=== PATIENT | female | born 1930 | race Caucasian/White ===

== ENCOUNTER 2016-11-21 20:13 | Emergency (ER) | payer OTHER ==
[~2016-11-21] VITALS: Ht 157.5 cm; Wt 46.5 kg
[~2016-11-21 20:13] MED LIST: ADVIN25/60 INH; ASPI81TA57 PO; ATOR-14 PO; AZITTAB PO; BISA5TAB4 PO; CALCTAB23 PO; CHOL100010 PO; DOCU50CA2 PO; FURO-85 PO; IPRA17AE2 INH; IPRASOL34 INH; ISOS30TA13 PO; LCTX PO; LUTE1CAP6 PO; MECL1TAB42 PO; NITR0.4S UT; OXGN; OXYC-609 PO; POLY335025 PO; POTA20TA16 PO; ZINC25CA PO
[2016-11-21 20:18] VITALS: BP 125/67; PULSE 68; TEMP 36.6; O2SAT 95; Ht 157.5 cm; Wt 46.5 kg
[2016-11-21] MEDS ORDERED: VALA500T60 PO (20:49)
[2016-11-21] MEDS ORDERED: SPRIN/30 INH (21:03)
[2016-11-21] MEDS ORDERED: PRED-301 PO (21:03)
[2016-11-21] MEDS ORDERED: MAGIC1 PO (21:03)
--- NOTE | 2016-11-21 21:43 | EMERGENCY ROOM VISIT NOTE ---
History Report prepared by Jozef: Harmeet Brunner Under the Supervision of: Dr. Gene Young M.D. First contact with patient: 20:38 Chief Complaint: OTHER COMPLAINT Stated Complaint: ULCERS IN MOUTH THAT WONT GO AWAY History of Present Illness The patient is a 85 year old female who presents to the Emergency Room with complaints of worsening mouth ulcers beginning 3 months ago. She states that she has been seen by her PCP for her symptoms. She has no history of ulcers. The patient has dentures in place, and notes that the ulcers are spreading to the roof of her mouth. Nothing has improved her symptoms. She has no other complaints and denies any fevers. Source of History: patient Onset: 3 months ago Position: other (mouth) Quality: other (ulcers) Timing: worsening Modifying Factors (Relieving): other (none) Associated Symptoms: No fevers Review of Systems See HPI for pertinent positives & negatives. A total of 10 systems reviewed and were otherwise negative. Past Medical & Surgical Medical Problems: (1) Benign hypertension (2) Chest pain (3) CHF (congestive heart failure) (4) Chronic obstructive lung disease (5) Coronary artery disease (6) Dizziness (7) Dyslipidemia (8) Gastroesophageal reflux disease (9) Hip pain (10) Hypoxia (11) Hypoxia (12) Inability to ambulate due to hip (13) Inability to ambulate due to hip (14) Intractable pain (15) KNEE JOINT REPLACEMENT STATUS (16) MACULAR DEGENERATION NOS (17) [place] (myocardial infarction) (18) OSTEOPOROSIS NEC (19) Pain in wrist (20) Pneumonia (21) Pseudogout (22) Pseudogout (23) Pseudogout (24) Refractory migraine without aura (25) Sciatica (26) SOB (shortness of breath) (27) Symptomatic bradycardia (28) Symptomatic bradycardia (29) Symptomatic bradycardia (30) Vertigo (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 Family History Cancer Diabetes mellitus Heart disease Hypertension Social History Smoking Status: Unknown if Ever Smoked Alcohol Use: none Drug Use: none Marital Status: Housing Status: lives with family Occupation Status: retired Current/Historical Medications Scheduled Aspirin (Aspirin Ec Lo-Dose), 81 MG PO DAILY Atorvastatin (Lipitor), 10 MG PO QPM Bisacodyl (Fleet Laxative), 5 MG PO QPM Calcium Carbonate-Vitamin D (Calcium 600-D), 1 TABLET PO BID Cholecalciferol (Vitamin D), 1,000 INTER.UNIT PO BID Diphenhy/Alum/Mag/Sucralfa (Magic Swizzle - Diphenhy/Alum/Mag/Sucralfa), 30 ML PO QID Docusate Sodium (Colace), 100 MG PO HS Fluticasone Prop/Salmeterol (Advair Diskus 250/50 60 Dose), 1 PUFF INH BID Furosemide (Lasix), 20 MG PO Q2D Ipratropium [place] Hfa (Atrovent Hfa), 2 PUFFS INH BID Ipratropium-Albuterol (Duoneb), 1 TREATMENT INH BID Isosorbide Mononitrate (Imdur), 30 MG PO QAM Lactobacillus Acidophilus (Floranex), 1 TAB PO DAILY Lutein (Lutein), 40 MG PO DAILY Omeprazole (Prilosec), 40 MG PO QPM Oxygen (Oxygen), 3 LITER NA HS Polyethylene Glycol 3350 (Miralax), 1 DOSE PO DAILY UD Potassium Ext Rel (Klor-Con), 20 MEQ PO DAILY Prednisone (Prednisone), 5 MG PO DAILY Tiotropium [place] (Spiriva Handihaler), 1 CAP INH DAILY Valacyclovir (Valtrex), 500 MG PO BID Zinc Acetate (Oral) (Galzin), 50 MG PO TID Scheduled PRN Diazepam (Valium), 5 MG PO BID PRN for Anxiety or Tremor Furosemide (Lasix), 20 MG PO QAM PRN for SWELLING OR WEIGHT GAIN Meclizine Hcl (Meclizine Hcl), 25 MG PO TID PRN for Dizziness Nitroglycerin (Nitrostat), 0.4 MG UT UD PRN for Chest Pain Oxycodone HCl (Oxycodone HCl), 5 MG PO Q6H PRN for Headache Oxygen (Oxygen), 2 LITERS NA daytime PRN for Shortness of Breath Allergies Coded Allergies: Penicillins (Verified Allergy, Intermediate, AMOXICILLIN-HIVES, 11/21/16) Polymyxin B (Verified Allergy, Unknown, POLYTRIM, 11/21/16) Trimethoprim (Verified Allergy, Unknown, POLYTRIM, 11/21/16) Physical Exam Vital Signs Date Time Temp Pulse Resp B/P Pulse Ox O2 Delivery O2 Flow Rate FiO2 11/21/16 20:18 36.6 68 18 125/67 95 Room Air Physical Exam General: Sitting at the bedside in wheel chair. No acute distress. HEENT: Two mucosal ulcers noted. One to the inner aspect of the lower lip, another to the upper central gumline underneath her dentures. No gingivitis. No pharyngitis. Mucous membrane are moist. Neuro: Awake, alert and oriented x3. No focal motor deficits. Medical Decision & Procedures Medications Administered Medications (Trade) Dose Ordered Sig/Omkar Route Start Time Stop Time Status Last Admin Dose Admin Valacyclovir HCl (Valtrex Tab) 500 mg NOW STAT PO 11/21/16 20:44 11/21/16 20:46 DC 11/21/16 20:49 500 MG ED Course 2037: The patient was evaluated in room B2. A complete history and physical exam was performed. 2043: Ordered Valtrex Tab 500 mg PO. 2049: Reevaluated the patient. Discussed results and discharge instructions: she verbalized understanding and agreement. The patient is ready for discharge. Medical Decision The patient is a 85 year old female who presents to the ED with complaints of worsening mouth ulcers. Differential diagnoses considered include gingivitis, pharyngitis, stomatitis, mouth ulcers, and cold sores. The patient has 2 superficial ulcers in the mouth. There is no evidence for posterior pharyngeal ulcers. There is no gingivitis. She is not toxic or febrile. The patient is going to be placed on Valtrex, a dose was given here. She can follow with her doctors office. She can return for worsening symptoms. Impression Primary Impression: Mouth ulcers Scribe Attestation The scribe's documentation has been prepared under my direction and personally reviewed by me in its entirety. I confirm that the note above accurately reflects all work, treatment, procedures, and medical decision making performed by me. Departure Information Dispostion Home / Self-Care Prescriptions Valacyclovir (Valtrex) 500 Mg Tab 500 MG PO BID for 10 Days, #20 TAB Prov: Gene Young M.D. 11/21/16 Referrals Elder Nickerson, D.OClarissa (PCP) Forms HOME CARE DOCUMENTATION FORM, IMPORTANT VISIT INFORMATION, WORK / SCHOOL INSTRUCTIONS Patient Instructions A Signature Page, My [employer] Additional Instructions use valtrex 2x per day for 10 days see your doctor this week for a recheck otc creams to help the pain return if worsening
[2017-02-08] MEDS ORDERED: LVQ750 PO (12:20)
== END 2016-11-21 20:57 | disposition home or self-care (01) ==
LOC: C.EDB 20:15
DX: K12.30 Oral mucositis (ulcerative), unspecified (principal); I10 Essential (primary) hypertension; I25.10 Atherosclerotic heart disease of native coronary artery without angina pectoris; E78.5 Hyperlipidemia, unspecified; K21.9 Gastro-esophageal reflux disease without esophagitis; I50.9 Heart failure, unspecified; J44.9 Chronic obstructive pulmonary disease, unspecified; M81.0 Age-related osteoporosis without current pathological fracture; I25.2 Old myocardial infarction; Z96.659 Presence of unspecified artificial knee joint; Z79.82 Long term (current) use of aspirin; Z79.899 Other long term (current) drug therapy; Z88.0 Allergy status to penicillin; Z88.8 Allergy status to other drugs, medicaments and biological substances; Z80.9 Family history of malignant neoplasm, unspecified; Z83.3 Family history of diabetes mellitus; Z82.49 Family history of ischemic heart disease and other diseases of the circulatory system

== ENCOUNTER 2017-02-04 13:14 | Inpatient (IN) | payer OTHER ==
[~2017-02-04] VITALS: Ht 157.5 cm; Wt 49.3 kg
[~2017-02-04 13:14] MED LIST changes: -AZITTAB PO; +MAGIC1 PO; +PRED-301 PO; +SPRIN/30 INH
[2017-02-04 16:00] VITALS: BP 147/57; PULSE 58; TEMP 36.3; O2SAT 95
[2017-02-04] MEDS ORDERED: ONDANSETRON INJ 2 MG/ML 2 ML VIAL IV PRN (16:30)
[2017-02-04] MEDS ORDERED: ACETAMINOPHEN 325 MG TAB PO PRN (16:30)
[2017-02-04] MEDS ORDERED: BISA5TAB4 PO (17:43)
[2017-02-04] MEDS ORDERED: SENNTAB23 PO (17:43)
[2017-02-04] MEDS ORDERED: POTA-74 PO (17:43)
[2017-02-04] MEDS ORDERED: AZIT250T PO (17:43)
[2017-02-04] MEDS ORDERED: MOME6000 NAE (17:43)
[2017-02-04] MEDS ORDERED: PRED10TA PO (17:43)
[2017-02-04] MEDS ORDERED: NITROGLYCERIN 0.4 MG SL PER TAB CHARGE UT PRN (17:45)
[2017-02-04] MEDS ORDERED: OXYCODONE HCL IR 5 MG TAB (IMMEDIATE RELEASE) PO PRN (17:45)
[2017-02-04] MEDS ORDERED: BISACODYL 5 MG TABEC PO PRN (17:45)
[2017-02-04] MEDS ORDERED: MECLIZINE HCL 12.5 MG TAB PO PRN (17:45)
[2017-02-04] MEDS ORDERED: LEVOFLOXACIN / D5W 750 MG in PREMIXED IN D5W 150 ML IV SCH (18:15)
[2017-02-04 18:37] LABS: BASO % 0.5 %; BASO ABS # 0.02 K/uL (0-0.2); COMPLETE YES; EOS % 0.5 %; HEMATOCRIT 37.7 % (37-47); IG% 0.2 %; LYMPH % 26.4 %; LYMPH ABS # 1.09 K/uL (1.2-3.4); MEAN CELL VOLUME 78.1 fL (80-100); MEAN CORPUSCULAR HEMOGLOBIN 25.3 pg (25-34); MEAN CORPUSCULAR HGB CONC 32.4 g/dl (32-36); MEAN PLATELET VOLUME 9.5 fL (7.4-10.4); MONO % 9.2 %; NEUT % 63.2 %; PLATELET COUNT 181 K/uL (130-400); RED BLOOD COUNT 4.83 M/uL (4.2-5.4); WHITE BLOOD COUNT 4.13 K/uL (4.8-10.8)
[2017-02-04 18:49] LABS: PARTIAL THROMBOPLASTIN RATIO 1.2; PROTHROMBIN TIME (PATIENT) 11.2 SECONDS (9.0-12.0)
[2017-02-04 18:54] LABS: BLOOD UREA NITROGEN 20 mg/dl (7-18); BUN/CREATININE RATIO 18.1 (10-20); CALCIUM 8.7 mg/dl (8.5-10.1); CARBON DIOXIDE 29 mmol/L (21-32); CHLORIDE 106 mmol/L (98-107); GLUCOSE 136 mg/dl (70-99); POTASSIUM 4.1 mmol/L (3.5-5.1); SODIUM 141 mmol/L (136-145)
--- NOTE | 2017-02-04 18:54 | History and Physical ---
History & Physical Date & Time of Service: Feb 04, 2017 at 17:49 Chief Complaint: Copd Exacerbation, Pneumonia Primary Care Physician: Elder Nickerson D.OClarissa History of Present Illness Source: patient, clinic records This is an 86 year old female with PMH of COPD on oxygen HS and PRN, hx of TATYANA treated in 2011, systolic and diastolic CHF, CAD, and other problems listed below who presents as a direct admission from Dr. Diaz's office for L basilar pneumonia. Patient reports cough with occasional sputum production starting 1 week ago. She reports increased dyspnea on exertion from baseline over past few days. She reports central chest pain only during cough. Has rhinorrhea and postnasal drip. She was using Atrovent and Duoneb at home. She stopped Advair a few weeks ago due to oral sores. Has not used Spiriva. She took Azithromycin and prednisone rescue pack x 2 days without relief- last dose yesterday. She was seen by Dr. Diaz in clinic today who obtained CXR which showed left basilar pneumonia. Has occasional bilateral calf cramps. She denies fever, chills, diaphoresis, sore throat, dyspnea at rest, N/V/D, urinary changes, weight gain, edema. No suspected aspiration. She had a seasonal influenza vaccine. No sick contact. No recent hospitalization. Patient follows with Dr. Ocampo for pulmonology. Past Medical/Surgical History Medical Problems: (1) Benign hypertension Status: Chronic (2) CKD (chronic kidney disease), stage III Status: Chronic (3) COPD (chronic obstructive pulmonary disease) Status: Chronic (4) Coronary artery disease Status: Chronic (5) Dyslipidemia Status: Chronic (6) Gastroesophageal reflux disease Status: Chronic (7) History of endometrial cancer Status: Chronic (8) History of TATYANA infection Permanent Comment: 2011 dx by bronchoscopic culture Status: Chronic (9) KNEE JOINT REPLACEMENT STATUS Status: Chronic (10) Legal blindness Status: Chronic (11) MACULAR DEGENERATION NOS Status: Chronic (12) VT (myocardial infarction) Status: Resolved (13) Osteoporosis Status: Chronic (14) OSTEOPOROSIS NEC Status: Chronic (15) Pneumonia Status: Resolved (16) Pseudogout Status: Resolved (17) Pseudogout Status: Resolved (18) Pseudogout Status: Chronic (19) Refractory migraine without aura Status: Chronic (20) Symptomatic bradycardia Status: Resolved (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 prior 1 ppd x 40 years. ) Alcohol Use: occasionally (rare 1 drink on special occasion) Drug Use: none Marital Status: Housing status: lives with family Occupational Status: retired Immunizations History of Influenza Vaccine: Yes Influenza Vaccine Date: Aug 23, 2009 History of Tetanus Vaccine?: Yes History of Pneumococcal: No History of Hepatitis B Vaccine: No Multi-Drug Resistant Organisms History of MDRO: No Allergies Coded Allergies: Penicillins (Verified Allergy, Intermediate, AMOXICILLIN-HIVES, 11/21/16) Polymyxin B (Verified Allergy, Unknown, POLYTRIM, 11/21/16) Trimethoprim (Verified Allergy, Unknown, POLYTRIM, 11/21/16) Home Medications Scheduled Aspirin (Aspirin Ec Lo-Dose), 81 MG PO DAILY Atorvastatin (Lipitor), 10 MG PO DAILY Azithromycin (Zithromax), 250 MG PO UD Calcium Carbonate-Vitamin D (Calcium 600-D), 1 TABLET PO BID Cholecalciferol (Vitamin D), 1,000 INTER.UNIT PO BID Furosemide (Lasix), 20 MG PO DAILY Ipratropium [place] Hfa (Atrovent Hfa), 2 PUFFS INH BID Ipratropium-Albuterol (Duoneb), 1 TREATMENT INH BID Isosorbide Mononitrate (Imdur), 30 MG PO QAM Lutein (Lutein), 40 MG PO DAILY Mometasone Furoate (Nasal) (Mometasone Furoate), 1 SPRAY FRENCH DAILY Omeprazole (Prilosec), 40 MG PO QPM Polyethylene Glycol 3350 (Miralax), 1 DOSE PO HS Potassium Chloride (Potassium Chloride Er), 1 TAB PO BID Prednisone Tab (Prednisone), 10 MG PO UD Sennosides-Docusate Sodium (Stool Softener), 2 TABS PO HS Zinc Acetate (Oral) (Galzin), 50 MG PO TID Scheduled PRN Bisacodyl (Fleet Laxative), 5 MG PO HS PRN for Constipation Diazepam (Valium), 5 MG PO BID PRN for Anxiety or Tremor Meclizine Hcl (Meclizine Hcl), 25 MG PO TID PRN for Dizziness Nitroglycerin (Nitrostat), 0.4 MG UT UD PRN for Chest Pain Oxycodone HCl (Oxycodone HCl), 5 MG PO Q6H PRN for Headache Review of Systems Ten point ROS performed with pertinent positives and negatives noted in HPI. Physical Exam Vital Signs Date Time Temp Pulse Resp B/P Pulse Ox O2 Delivery O2 Flow Rate FiO2 02/04/17 16:00 36.3 58 18 147/57 95 Room Air General Appearance: no apparent distress, + thin, + pertinent finding ( pleasant alert 86 year old female, sitting on edge of bed, son at bedside) Head: normocephalic, atraumatic Eyes: normal inspection, PERRL, sclerae normal ENT: hearing grossly normal, pharynx normal, + pertinent finding (has upper dentures. no underlying oral lesions) Neck: supple, no JVD, trachea midline Respiratory/Chest: chest non-tender, no respiratory distress, no accessory muscle use, + pertinent finding (equal breath sounds. scattered rhonchi. no wheezing. ) Cardiovascular: regular rate, rhythm, no murmur Abdomen/GI: normal bowel sounds, non tender, soft Extremities/Musculoskelatal: no calf tenderness, no pedal edema Neurologic/Psych: alert, normal mood/affect, oriented x 3, + pertinent finding (grossly nonfocal) Skin: normal color, warm/dry Diagnostics Laboratory Results Results Past 24 Hours Test 02/04/17 16:40 02/04/17 17:23 Range/Units Microbiology Results 02/04/17 Gram Stain, Ordered Pending 02/04/17 Sputum Culture, Ordered Pending Diagnostic Radiology Outpatient CXR 02/04/17 report showed left base pneumonia and underlying COPD Impression Assessment and Plan COPD EXACERBATION Due to community acquired pneumonia Outpatient CXR 02/04/17 showed left base pneumonia and underlying COPD Failed outpatient treatment with Azithromycin and PO prednisone Underlying chronic respiratory failure requiring 3 liters NC HS and PRN; currently saturating well on RA Afebrile; no tachycardia, CBC pending Check influenza PCR and sputum culture Will treat with IV Solu-Medrol 40 mg daily Noted to have penicillin allergy Start empiric IV Levaquin Duonebs QID and PRN Continue Atrovent; resume Advair which she stopped on her own 2-3 weeks ago due to oral sores Follows with Dr. Ocampo ATYPICAL CHEST PAIN Likely secondary to pneumonia Occurs only during cough; no exertional CP Benzonatate PRN cough CAD Continue aspirin, Imdur, statin Follows with Dr. Andrews CHRONIC SYSTOLIC AND DIASTOLIC CHF Appears euvolemic; no failure mentioned in outpatient CXR report Continue home dose of Lasix INTERMITTENT ORAL LESIONS No active lesion currently Plans to have biopsy done with oral surgeon as outpatient GERD Continue PPI will order dvt prophy pending lab results CODE STATUS Per patient's wishes, in case of cardiac arrest, NO COMPRESSIONS, NO MECHANICAL VENTILATION. Wants CARDIOVERSION if indicated. Has advanced directive. Since this is not a code status option, I have made her code status Level 5 DNR with her wishes stated in the comment section. If she is conscious and develops respiratory failure, would be OK with mechanical ventilation. DISPOSITION Lives with son- discussed with him at bedside Follows with Dr. Elder Nickerson for primary care Patient seen in collaboration with Dr. Napoles. Please see his addendum. Attending Addendum Pt was seen and examined. Agreed with Alexandria QUIJANO's physical exam, assessment and plan. 86 year old female with PMH of COPD on oxygen HS and PRN, systolic and diastolic CHF, CAD presents as a direct admission from Dr. Diaz's office for L basilar pneumonia. Patient said for the past few week, she has been having productive cough with yellowish sputum associated with SOB. Also complaint of chest tenderness when coughing. Denies any fever, fever and palpitation. General- No acute distress Head- atraumatic Eyes- PERRL, EOMI ENT- oropharynx clear Neck- supple, no JVD Lungs- No wheezing, no crackles Heart- regular rhythm, no murmur Abdomen- normal bowel sounds, soft Extremities- no calf tenderness Neuro- alert, oriented, PERRL, EOMI Skin- warm & dry A/P Community acquired pneumonia CXR done today at PCP's office showed left base pneumonia Afebrile; no tachycardia Check influenza PCR and sputum culture urine for strep Will treat with IV Solu-Medrol 40 mg daily Start empiric IV Levaquin Duonebs QID and PRN continue monitor cough suppressant prn Please refer to Alexandria THURSTON documentation for other problems. Saul Napoles MD VTE Prophylaxis VTE Risk Assessment Done? Y/N: Yes Risk Level: Moderate
[2017-02-04] MEDS: ALBUT/IPRATROP 3MG/0.5MG NEB 3 ML VIAL INH SCH (19:17)
[2017-02-04 19:18] VITALS: PULSE 71; O2SAT 95
[2017-02-04] MEDS: PATIENT'S HEIGHT AND/OR WEIGHT NEEDED SCH ×2 (19:30→21:30)
[2017-02-04 20:00] VITALS: O2SAT 95
[2017-02-04] MEDS ORDERED: ZINC ACETATE 50 MG PO SCH (20:00)
[2017-02-04] MEDS: CHOLECALCIFEROL 1000 INTER.UNIT TAB PO SCH (21:19)
[2017-02-04] MEDS: POTASSIUM CHLORIDE 10 MEQ TABCR PO SCH (21:19)
[2017-02-04] MEDS: DOCUSATE SODIUM/SENNA 50/8.6MG TAB PO SCH (21:20)
[2017-02-04] MEDS: POLYETHYLENE (MIRALAX) 17 GM PACK PO SCH (21:20)
[2017-02-04] MEDS: METHYLPREDNISOLONE IV 40 MG in SYRINGE 0 ML IV SCH (21:20)
[2017-02-04] MEDS: FLUTICASONE/SALMETEROL 250/50 (ADVAIR) 14 PUFF/1 INHALER INH SCH (21:37)
[2017-02-04] MEDS: BENZONATATE 100MG CAP PO PRN (21:38)
[2017-02-04] MEDS: DIAZEPAM 5MG TAB PO PRN (21:40)
[2017-02-04 22:12] VITALS: BMI 19.8
[2017-02-04 23:22] VITALS: BP 147/57; PULSE 58; TEMP 36.3; O2SAT 95; Ht 157.5 cm; Wt 49.3 kg
[2017-02-04] MEDS ORDERED: LEVOFLOXACIN / D5W 750 MG in PREMIXED IN D5W 150 ML IV STA (23:41)
[2017-02-05] VITALS (9 sets, daily range): BP systolic 144–161; BP diastolic 67–79; PULSE 56–71; TEMP 36.4–36.5; O2SAT 93–97
[2017-02-05] MEDS ORDERED: LEVOFLOXACIN CONSULT ACTIVE PRN (01:45)
[2017-02-05] MEDS: HEPARIN SOD 5000 UNIT/0.5 ML CARP SQ SCH ×3 (06:33→21:12)
[2017-02-05] MEDS: ALBUT/IPRATROP 3MG/0.5MG NEB 3 ML VIAL INH SCH ×4 (07:24→19:29)
[2017-02-05] MEDS: METHYLPREDNISOLONE IV 40 MG in SYRINGE 0 ML IV SCH (07:38)
[2017-02-05] MEDS: FLUTICASONE/SALMETEROL 250/50 (ADVAIR) 14 PUFF/1 INHALER INH SCH ×2 (07:38→21:07)
[2017-02-05] MEDS: FLUTICASONE PROPIONATE NA SPR 16 GM BTL NAE SCH (07:39)
[2017-02-05] MEDS: ISOSORBIDE MONONITRATE 30 MG TABCR PO SCH (07:40)
[2017-02-05] MEDS: POTASSIUM CHLORIDE 10 MEQ TABCR PO SCH ×2 (07:40→21:08)
[2017-02-05] MEDS: FUROSEMIDE 20 MG TAB PO SCH (07:40)
[2017-02-05] MEDS: CHOLECALCIFEROL 1000 INTER.UNIT TAB PO SCH ×2 (07:41→21:09)
[2017-02-05] MEDS: PANTOprazole SOD 40 MG TAB PO SCH (07:41)
[2017-02-05] MEDS: ASPIRIN 81 MG ECTAB PO SCH (07:42)
[2017-02-05] MEDS: BENZONATATE 100MG CAP PO PRN ×2 (07:43→23:19)
[2017-02-05] MEDS ORDERED: ATORVASTATIN 10 MG TAB PO SCH (08:00)
[2017-02-05] MEDS ORDERED: NON-FORMULARY MEDICATION (Lutein 40 MG) PO SCH (08:00)
[2017-02-05] MEDS ORDERED: NURSING VERBAL MED ORDER ONE (14:15)
--- NOTE | 2017-02-05 15:01 | Progress Note ---
Internal Med Progress Note Date of Service: Feb 05, 2017. Provider Documentation: SUBJECTIVE: Patient is doing better Denies any worsening of SOB, Cough from baseline No fever, chills, leg swelling On RA - sao2 well OBJECTIVE: Vital Signs-as noted below Exam: General-AAOX3, No distress, frail, malnourished Neck-Supple, NO JVD Lungs-AEBE decreased Left > Right, no wheezing, rhonchi Heart-S1, S2 normal Extremities-No edema Lab data as noted below. ASSESSMENT & PLAN: COMMUNITY ACQUIRED PNEUMONIA (LEFT SIDED) MILD COPD EXACERBATION SECONDARY TO ABOVE - Improving Failed outpatient rx with azithromycin/PO prednisone -Afebrile, Cough + with no sputum, no leucocytosis -IV Levofloxacin 750 mg q 48 hours (Day 2) -IV solumedrol--> change to po prednisone 40 mg daily. Continue with Advair ( stopped few days ago due to cold sores) -Work up- CXR- done outpatient at Dr Walsh office, Flu - negative, Sputum cx- unable to collect sputum sample NOCTURNAL HYPOXIA -On 3 Litres of oxygen at home q HS and PRN -Currently SaO2 well on RA CAD -Continue aspirin, Imdur, statin -Follows with Dr. Andrews CHRONIC SYSTOLIC AND DIASTOLIC CHF -Appears euvolemic; no failure mentioned in outpatient CXR report -Continue home dose of Lasix INTERMITTENT ORAL LESIONS -No active lesion currently Plans to have biopsy done with oral surgeon as outpatient GERD -Continue PPI DVT PROPHYLAXIS Heparin SQ CODE STATUS Per patient's wishes, in case of cardiac arrest, NO COMPRESSIONS, NO MECHANICAL VENTILATION. Wants CARDIOVERSION if indicated. Has advanced directive. Since this is not a code status option, I have made her code status Level 5 DNR with her wishes stated in the comment section. If she is conscious and develops respiratory failure, would be OK with mechanical ventilation. DISPOSITION Lives with son- discussed with him at bedside Follows with Dr. Elder Nickerson for primary care Vital Signs: Date Time Temp Pulse Resp B/P Pulse Ox O2 Delivery O2 Flow Rate FiO2 02/05/17 11:35 68 16 95 Room Air 02/05/17 08:08 36.4 71 16 161/67 93 Room Air 02/05/17 08:00 93 Room Air 02/05/17 07:25 71 16 93 Room Air 02/05/17 00:00 36.4 56 20 159/77 96 2.0 02/05/17 00:00 95 Nasal Cannula 3.0 02/04/17 23:22 36.3 58 16 147/57 95 Room Air 02/04/17 20:00 95 Nasal Cannula 3.0 02/04/17 19:18 71 16 95 Room Air 02/04/17 16:00 36.3 58 18 147/57 95 Room Air Lab Results: Results Past 24 Hours Test 02/04/17 18:24 Range/Units White Blood Count 4.13 4.8-10.8 K/uL Red Blood Count 4.83 4.2-5.4 M/uL Hemoglobin 12.2 12.0-16.0 g/dL Hematocrit 37.7 37-47 % Mean Corpuscular Volume 78.1 80-100 fL Mean Corpuscular Hemoglobin 25.3 25-34 pg Mean Corpuscular Hemoglobin Concent 32.4 32-36 g/dl Platelet Count 181 130-400 K/uL Mean Platelet Volume 9.5 7.4-10.4 fL Neutrophils (%) (Auto) 63.2 % Lymphocytes (%) (Auto) 26.4 % Monocytes (%) (Auto) 9.2 % Eosinophils (%) (Auto) 0.5 % Basophils (%) (Auto) 0.5 % Neutrophils # (Auto) 2.61 1.4-6.5 K/uL Lymphocytes # (Auto) 1.09 1.2-3.4 K/uL Monocytes # (Auto) 0.38 0.11-0.59 K/uL Eosinophils # (Auto) 0.02 0-0.5 K/uL Basophils # (Auto) 0.02 0-0.2 K/uL RDW Standard Deviation 43.4 36.4-46.3 fL RDW Coefficient of Variation 15.0 11.5-14.5 % Immature Granulocyte % (Auto) 0.2 % Immature Granulocyte # (Auto) 0.01 0.00-0.02 K/uL Prothrombin Time 11.2 9.0-12.0 SECONDS Prothromb Time International Ratio 1.0 0.9-1.1 Activated Partial Thromboplast Time 29.9 21.0-31.0 SECONDS Partial Thromboplastin Ratio 1.2 Sodium Level 141 136-145 mmol/L Potassium Level 4.1 3.5-5.1 mmol/L Chloride Level 106 98-107 mmol/L Carbon Dioxide Level 29 21-32 mmol/L Anion Gap 6.0 3-11 mmol/L Blood Urea Nitrogen 20 7-18 mg/dl Creatinine 1.10 0.60-1.20 mg/dl Estimated GFR () 53.4 Estimated GFR (Non- 46.1 BUN/Creatinine Ratio 18.1 10-20 Random Glucose 136 70-99 mg/dl Calcium Level 8.7 8.5-10.1 mg/dl
[2017-02-05 17:28] LABS: INFLUENZA A PCR Neg for Influ A (NEG); INFLUENZA B PCR Neg for Influ B (NEG)
[2017-02-05] MEDS: POLYETHYLENE (MIRALAX) 17 GM PACK PO SCH (21:08)
[2017-02-05] MEDS: ATORVASTATIN 10 MG TAB PO SCH (21:09)
[2017-02-05] MEDS: DOCUSATE SODIUM/SENNA 50/8.6MG TAB PO SCH (21:10)
[2017-02-05] MEDS: DIAZEPAM 5MG TAB PO PRN (23:22)
[2017-02-06] VITALS (10 sets, daily range): BP systolic 123–174; BP diastolic 61–73; PULSE 57–81; TEMP 36.4–37.1; O2SAT 90–97
[2017-02-06] MEDS: BENZONATATE 100MG CAP PO PRN ×2 (05:20→21:49)
[2017-02-06] MEDS: HEPARIN SOD 5000 UNIT/0.5 ML CARP SQ SCH ×3 (06:24→22:00)
[2017-02-06] MEDS: ALBUT/IPRATROP 3MG/0.5MG NEB 3 ML VIAL INH SCH ×4 (07:33→20:00)
[2017-02-06] MEDS: FLUTICASONE PROPIONATE NA SPR 16 GM BTL NAE SCH (07:54)
[2017-02-06] MEDS: CHOLECALCIFEROL 1000 INTER.UNIT TAB PO SCH ×2 (07:55→20:20)
[2017-02-06] MEDS: POTASSIUM CHLORIDE 10 MEQ TABCR PO SCH ×2 (07:55→20:19)
[2017-02-06] MEDS: ZINC ACETATE PO SCH ×3 (07:55→20:19)
[2017-02-06] MEDS: FLUTICASONE/SALMETEROL 250/50 (ADVAIR) 14 PUFF/1 INHALER INH SCH ×2 (07:56→20:17)
[2017-02-06] MEDS: ASPIRIN 81 MG ECTAB PO SCH (07:56)
[2017-02-06] MEDS: ISOSORBIDE MONONITRATE 30 MG TABCR PO SCH (07:56)
[2017-02-06] MEDS: PANTOprazole SOD 40 MG TAB PO SCH (07:56)
[2017-02-06] MEDS: FUROSEMIDE 20 MG TAB PO SCH (07:57)
[2017-02-06 07:59] LABS: HEMATOCRIT 36.9 % (37-47); MEAN CELL VOLUME 77.8 fL (80-100); MEAN CORPUSCULAR HEMOGLOBIN 25.1 pg (25-34); MEAN CORPUSCULAR HGB CONC 32.2 g/dl (32-36); MEAN PLATELET VOLUME 10.3 fL (7.4-10.4); PLATELET COUNT 193 K/uL (130-400); RED BLOOD COUNT 4.74 M/uL (4.2-5.4); WHITE BLOOD COUNT 3.87 K/uL (4.8-10.8)
[2017-02-06] MEDS ORDERED: PANTOprazole SOD 40 MG TAB PO SCH (08:00)
[2017-02-06 08:23] LABS: BUN/CREATININE RATIO 22.4 (10-20); CREATININE 0.94 mg/dl (0.60-1.20); POTASSIUM 3.9 mmol/L (3.5-5.1)
[2017-02-06] MEDS ORDERED: GUAIFENESIN SUGAR FREE 100 MG/5 ML UDC PO PRN (12:00)
--- NOTE | 2017-02-06 14:30 | Progress Note ---
Internal Med Progress Note Date of Service: Feb 06, 2017. Provider Documentation: SUBJECTIVE: Patient is doing better Denies any worsening of SOB, Cough from baseline No fever, chills, leg swelling On RA - sao2 well OBJECTIVE: Vital Signs-as noted below Exam: General-AAOX3, No distress, frail, malnourished Neck-Supple, NO JVD Lungs-AEBE decreased Left > Right, no wheezing, rhonchi Heart-S1, S2 normal Extremities-No edema Lab data as noted below. ASSESSMENT & PLAN: COMMUNITY ACQUIRED PNEUMONIA (LEFT SIDED) MILD COPD EXACERBATION SECONDARY TO ABOVE - Improving Failed outpatient rx with azithromycin/PO prednisone -Afebrile, Cough + with no sputum, no leucocytosis -IV Levofloxacin 750 mg q 48 hours (Day 3) -IV solumedrol--> change to po prednisone 40 mg daily. Continue with Advair ( stopped few days ago due to cold sores) -Work up- CXR- done outpatient at Dr Walsh office, Flu - negative, Sputum cx- unable to collect sputum sample NOCTURNAL HYPOXIA -On 3 Litres of oxygen at home q HS and PRN -Currently SaO2 well on RA CAD -Continue aspirin, Imdur, statin -Follows with Dr. Andrews CHRONIC SYSTOLIC AND DIASTOLIC CHF -Appears euvolemic; no failure mentioned in outpatient CXR report -Continue home dose of Lasix INTERMITTENT ORAL LESIONS -No active lesion currently Plans to have biopsy done with oral surgeon as outpatient GERD -Continue PPI DVT PROPHYLAXIS Heparin SQ CODE STATUS Per patient's wishes, in case of cardiac arrest, NO COMPRESSIONS, NO MECHANICAL VENTILATION. Wants CARDIOVERSION if indicated. Has advanced directive. Since this is not a code status option, I have made her code status Level 5 DNR with her wishes stated in the comment section. If she is conscious and develops respiratory failure, would be OK with mechanical ventilation. DISPOSITION Lives with son- discussed with him at bedside Follows with Dr. Elder Nickerson for primary care Likely discharge in AM Vital Signs: Date Time Temp Pulse Resp B/P Pulse Ox O2 Delivery O2 Flow Rate FiO2 02/06/17 11:20 70 16 97 Room Air 02/06/17 08:00 93 Room Air 02/06/17 07:42 36.7 57 16 146/61 93 Room Air 02/06/17 07:31 81 22 90 Room Air 02/06/17 00:10 36.6 70 18 153/72 95 Nasal Cannula 3.0 02/06/17 00:00 97 Room Air 3.0 02/05/17 19:31 69 16 97 Room Air 02/05/17 16:04 36.5 66 17 144/79 94 Room Air 02/05/17 16:00 93 Room Air 02/05/17 15:24 67 16 96 Room Air Lab Results: Results Past 24 Hours Test 02/06/17 07:05 Range/Units White Blood Count 3.87 4.8-10.8 K/uL Red Blood Count 4.74 4.2-5.4 M/uL Hemoglobin 11.9 12.0-16.0 g/dL Hematocrit 36.9 37-47 % Mean Corpuscular Volume 77.8 80-100 fL Mean Corpuscular Hemoglobin 25.1 25-34 pg Mean Corpuscular Hemoglobin Concent 32.2 32-36 g/dl RDW Standard Deviation 44.2 36.4-46.3 fL RDW Coefficient of Variation 15.3 11.5-14.5 % Platelet Count 193 130-400 K/uL Mean Platelet Volume 10.3 7.4-10.4 fL Sodium Level 142 136-145 mmol/L Potassium Level 3.9 3.5-5.1 mmol/L Chloride Level 108 98-107 mmol/L Carbon Dioxide Level 27 21-32 mmol/L Anion Gap 7.0 3-11 mmol/L Blood Urea Nitrogen 21 7-18 mg/dl Creatinine 0.94 0.60-1.20 mg/dl Est Creatinine Clear Calc Drug Dose 34.7 ml/min Estimated GFR () 64.6 Estimated GFR (Non- 55.7 BUN/Creatinine Ratio 22.4 10-20 Random Glucose 100 70-99 mg/dl Calcium Level 9.0 8.5-10.1 mg/dl Microbiology Results 02/06/17 Gram Stain, Received Pending 02/06/17 Sputum Culture, Received Pending
[2017-02-06] MEDS: IPRATROPIUM BROMIDE/ALBUTEROL respimat INH INH SCH ×2 (18:03→20:18)
[2017-02-06] MEDS: GUAIFENESIN 600 MG TABCR PO SCH (20:20)
[2017-02-06] MEDS: ATORVASTATIN 10 MG TAB PO SCH (20:21)
[2017-02-06] MEDS: DOCUSATE SODIUM/SENNA 50/8.6MG TAB PO SCH (20:22)
[2017-02-06] MEDS: POLYETHYLENE (MIRALAX) 17 GM PACK PO SCH (20:22)
[2017-02-07] VITALS (7 sets, daily range): BP systolic 121–133; BP diastolic 69–76; PULSE 61–68; TEMP 36.7–36.8; O2SAT 94–97
[2017-02-07] MEDS ORDERED: LEVOFLOXACIN 750MG / D5W IV SCH
[2017-02-07] MEDS: HEPARIN SOD 5000 UNIT/0.5 ML CARP SQ SCH ×3 (05:41→22:00)
[2017-02-07] MEDS: IPRATROPIUM BROMIDE/ALBUTEROL respimat INH INH SCH ×2 (08:11→12:04)
[2017-02-07] MEDS: FLUTICASONE/SALMETEROL 250/50 (ADVAIR) 14 PUFF/1 INHALER INH SCH ×2 (08:11→20:24)
[2017-02-07] MEDS: POTASSIUM CHLORIDE 10 MEQ TABCR PO SCH ×2 (08:12→20:27)
[2017-02-07] MEDS: CHOLECALCIFEROL 1000 INTER.UNIT TAB PO SCH ×2 (08:12→20:28)
[2017-02-07] MEDS: ISOSORBIDE MONONITRATE 30 MG TABCR PO SCH (08:12)
[2017-02-07] MEDS: GUAIFENESIN 600 MG TABCR PO SCH ×2 (08:12→20:28)
[2017-02-07] MEDS: ASPIRIN 81 MG ECTAB PO SCH (08:13)
[2017-02-07] MEDS: ZINC ACETATE PO SCH ×3 (08:13→20:27)
[2017-02-07] MEDS: PANTOprazole SOD 40 MG TAB PO SCH (08:13)
[2017-02-07] MEDS: FUROSEMIDE 20 MG TAB PO SCH (08:13)
[2017-02-07] MEDS: FLUTICASONE PROPIONATE NA SPR 16 GM BTL NAE SCH (08:15)
[2017-02-07 08:28] LABS: CREATININE 1.3 mg/dl (0.60-1.20)
[2017-02-07] MEDS ORDERED: SODIUM CHLORIDE 0.9% 1000ML 1,000 ML IV SCH (12:15)
--- NOTE | 2017-02-07 13:07 | Progress Note ---
Internal Med Progress Note Date of Service: Feb 07, 2017. Provider Documentation: SUBJECTIVE: Patient says she still feels a bit SOB today Cough + bringing more up today No fever, chills, leg swelling On RA - sao2 well OBJECTIVE: Vital Signs-as noted below Exam: General-AAOX3, No distress, frail, malnourished Neck-Supple, NO JVD Lungs-AEBE decreased Left > Right, no wheezing, rhonchi Heart-S1, S2 normal Extremities-No edema Lab data as noted below. ASSESSMENT & PLAN: COMMUNITY ACQUIRED PNEUMONIA (LEFT SIDED) MILD COPD EXACERBATION SECONDARY TO ABOVE - Improving Failed outpatient rx with azithromycin/PO prednisone -Afebrile, Cough + with no sputum, no leucocytosis -IV Levofloxacin 750 mg q 48 hours (Day 4)--> change to PO -S/P IV solumedrol--> PO prednisone 40 mg daily --> 30 mg daily. Continue with Advair (stopped few days ago due to cold sores) -Change Combivent to duonebs as SOB complaint today -Work up - CXR- done outpatient at Dr Walsh office, Flu - negative, Sputum cx- unable to collect sputum sample RIVERA Creatinine bumped up to 1.30 today -IV fluids x 1 bag -Monitor NOCTURNAL HYPOXIA -On 3 Litres of oxygen at home q HS and PRN -Currently SaO2 well on RA CAD -Continue aspirin, Imdur, statin -Follows with Dr. Andrews CHRONIC SYSTOLIC AND DIASTOLIC CHF -Appears euvolemic; no failure mentioned in outpatient CXR report -Continue home dose of Lasix INTERMITTENT ORAL LESIONS -No active lesion currently Plans to have biopsy done with oral surgeon as outpatient GERD -Continue PPI DVT PROPHYLAXIS Heparin SQ CODE STATUS Per patient's wishes, in case of cardiac arrest, NO COMPRESSIONS, NO MECHANICAL VENTILATION. Wants CARDIOVERSION if indicated. Has advanced directive. Since this is not a code status option, I have made her code status Level 5 DNR with her wishes stated in the comment section. If she is conscious and develops respiratory failure, would be OK with mechanical ventilation. DISPOSITION Lives with son- discussed with him at bedside Follows with Dr. Elder Nickerson for primary care Likely discharge in AM Vital Signs: Date Time Temp Pulse Resp B/P Pulse Ox O2 Delivery O2 Flow Rate FiO2 02/07/17 08:00 Room Air 02/07/17 07:58 36.8 66 16 133/69 95 Nasal Cannula 3.0 02/07/17 00:00 97 Nasal Cannula 3.0 02/06/17 23:56 37.1 69 18 174/72 95 Room Air 02/06/17 20:00 97 Room Air 3.0 02/06/17 16:00 93 Room Air 02/06/17 15:35 36.4 66 17 123/73 95 Room Air Lab Results: Results Past 24 Hours Test 02/07/17 07:49 Range/Units Creatinine 1.30 0.60-1.20 mg/dl Est Creatinine Clear Calc Drug Dose 25.1 ml/min Estimated GFR () 43.6 Estimated GFR (Non- 37.6
[2017-02-07] MEDS: ALBUT/IPRATROP 3MG/0.5MG NEB 3 ML VIAL INH SCH ×4 (16:00→20:06)
[2017-02-07] MEDS: ATORVASTATIN 10 MG TAB PO SCH (20:29)
[2017-02-07] MEDS: DOCUSATE SODIUM/SENNA 50/8.6MG TAB PO SCH (20:49)
[2017-02-07] MEDS: POLYETHYLENE (MIRALAX) 17 GM PACK PO SCH (20:49)
[2017-02-08] VITALS: O2SAT 97
[2017-02-08] MEDS: HEPARIN SOD 5000 UNIT/0.5 ML CARP SQ SCH (05:29)
[2017-02-08 06:15] LABS: BUN/CREATININE RATIO 18.7 (10-20); CALCIUM 8.2 mg/dl (8.5-10.1); POTASSIUM 4.1 mmol/L (3.5-5.1)
[2017-02-08 07:34] VITALS: PULSE 63; O2SAT 98
[2017-02-08] MEDS: ALBUT/IPRATROP 3MG/0.5MG NEB 3 ML VIAL INH SCH ×2 (07:34→11:16)
[2017-02-08 07:36] VITALS: BP 156/76; PULSE 60; TEMP 36.7; O2SAT 98
[2017-02-08] MEDS: GUAIFENESIN 600 MG TABCR PO SCH (08:57)
[2017-02-08] MEDS: ZINC ACETATE PO SCH (08:57)
[2017-02-08] MEDS: PANTOprazole SOD 40 MG TAB PO SCH (08:57)
[2017-02-08] MEDS: CHOLECALCIFEROL 1000 INTER.UNIT TAB PO SCH (08:57)
[2017-02-08] MEDS: FUROSEMIDE 20 MG TAB PO SCH (08:58)
[2017-02-08] MEDS: ASPIRIN 81 MG ECTAB PO SCH (08:58)
[2017-02-08] MEDS: POTASSIUM CHLORIDE 10 MEQ TABCR PO SCH (08:58)
[2017-02-08] MEDS: ISOSORBIDE MONONITRATE 30 MG TABCR PO SCH (08:58)
[2017-02-08] MEDS: FLUTICASONE PROPIONATE NA SPR 16 GM BTL NAE SCH (08:59)
[2017-02-08] MEDS: FLUTICASONE/SALMETEROL 250/50 (ADVAIR) 14 PUFF/1 INHALER INH SCH (09:00)
[2017-02-08 11:18] VITALS: PULSE 64; O2SAT 97
--- NOTE | 2017-02-08 12:15 | Progress Note ---
Internal Med Progress Note Date of Service: Feb 08, 2017. Provider Documentation: SUBJECTIVE: Patient is feeling well today and eager to be discharged. Cough + bringing up more now No fever, chills, leg swelling On RA - sao2 well OBJECTIVE: Vital Signs-as noted below Exam: General-AAOX3, No distress, frail, malnourished Neck-Supple, NO JVD Lungs-AEBE decreased Left > Right, no wheezing, rhonchi Heart-S1, S2 normal Extremities-No edema Lab data as noted below. ASSESSMENT & PLAN: COMMUNITY ACQUIRED PNEUMONIA (LEFT SIDED) : MILD COPD EXACERBATION SECONDARY TO ABOVE -Resolved Failed outpatient rx with azithromycin/PO prednisone -Afebrile, Cough + with no sputum, no leucocytosis -IV Levofloxacin 750 mg q 48 hours (Day 02/19)--> change to PO (Day 03/21) -S/P IV solumedrol--> PO prednisone 40 mg daily --> 30 mg daily and taper. Continue with Advair (stopped few days ago due to cold sores) -Nebs -Work up - CXR- done outpatient at Dr Walsh office, Flu - negative, Sputum cx- Moderate yuko RIVERA -Resolved Creatinine bumped up to 1.30--> now resolved -IV fluids x 1 bag NOCTURNAL HYPOXIA -On 3 Litres of oxygen at home q HS and PRN -Currently SaO2 well on RA CAD -Continue aspirin, Imdur, statin -Follows with Dr. Andrews CHRONIC SYSTOLIC AND DIASTOLIC CHF -Appears euvolemic; no failure mentioned in outpatient CXR report -Continue home dose of Lasix from tomorrow INTERMITTENT ORAL LESIONS -No active lesion currently Plans to have biopsy done with oral surgeon as outpatient GERD -Continue PPI DVT PROPHYLAXIS Heparin SQ CODE STATUS Per patient's wishes, in case of cardiac arrest, NO COMPRESSIONS, NO MECHANICAL VENTILATION. Wants CARDIOVERSION if indicated. Has advanced directive. Since this is not a code status option, I have made her code status Level 5 DNR with her wishes stated in the comment section. If she is conscious and develops respiratory failure, would be OK with mechanical ventilation. DISPOSITION Lives with son. PT cleared for discharge. Okay to discharge home today Follows with Dr. Elder Nickerson for primary care Vital Signs: Date Time Temp Pulse Resp B/P Pulse Ox O2 Delivery O2 Flow Rate FiO2 02/08/17 11:18 64 16 97 Nasal Cannula 2.0 02/08/17 08:26 Room Air 02/08/17 07:36 36.7 60 16 156/76 98 2.0 02/08/17 07:34 63 16 98 Nasal Cannula 3.0 02/08/17 00:00 97 Nasal Cannula 3.0 02/07/17 23:09 97 Room Air 02/07/17 20:06 61 16 95 Room Air 02/07/17 16:01 36.7 67 17 121/76 94 Room Air 02/07/17 16:00 Room Air 02/07/17 15:25 68 16 96 Room Air 02/07/17 14:39 68 95 Lab Results: Results Past 24 Hours Test 02/08/17 05:17 Range/Units Sodium Level 141 136-145 mmol/L Potassium Level 4.1 3.5-5.1 mmol/L Chloride Level 108 98-107 mmol/L Carbon Dioxide Level 26 21-32 mmol/L Anion Gap 7.0 3-11 mmol/L Blood Urea Nitrogen 19 7-18 mg/dl Creatinine 1.00 0.60-1.20 mg/dl Est Creatinine Clear Calc Drug Dose 32.6 ml/min Estimated GFR () 59.9 Estimated GFR (Non- 51.7 BUN/Creatinine Ratio 18.7 10-20 Random Glucose 95 70-99 mg/dl Calcium Level 8.2 8.5-10.1 mg/dl
[2017-02-08] MEDS ORDERED: LVQ750 PO ×2 (12:20)
[2017-02-08] MEDS ORDERED: GFNSR600 PO (12:20)
[2017-02-08] MEDS ORDERED: PRED10TA PO (12:20)
--- NOTE | 2017-02-08 12:23 | Discharge Instructions ---
Discharge Instructions Date of Service Feb 08, 2017. Admission Reason for Admission: Copd Exacerbation, Pneumonia Discharge Discharge Diagnosis / Problem: 1. Pneumonia 2. Mild copd exacerbation Discharge Goals Goal(s): Decrease discomfort, Improve function, Improve disease control, Prevent Disease Progression Activity Recommendations Activity Limitations: resume your previous activity (as tolerated prior to admission with assistance) . Instructions / Follow-Up Instructions / Follow-Up MEDICATION CHANGES: 1. New medication: Prednisone 30 mg daily x 2 days followed by 20 mg daily x 3 days followed by 10 mg daily x 3 days and than discontinue 2. New medication: Levofloxacin 750 mg q 2 days x 2 more days 3. Inhaler/Nebulizers are to be used only as needed and not on a daily basis ( Albuterol/Ipratropium or Combivent) FOLLOW UP 1. With Dr Elder Nickerson on 02/16/17 at 11:00 AM OXYGEN Continue to use 2 L at night Use 2 L during day time with activity and do not need to wear it at rest Current Hospital Diet Patient's current hospital diet: AHA Diet (Heart Healthy) Discharge Diet Recommended Diet: AHA Diet (Heart Healthy) Pending Studies Studies pending at discharge: no Medical Emergencies . Who to Call and When: Medical Emergencies: If at any time you feel your situation is an emergency, please call 911 immediately. . Non-Emergent Contact Non-Emergency issues call your: Primary Care Provider . . "Provider Documentation" section prepared by Ania Ingram. VTE Core Measure Inpt VTE Proph given/why not?: Unfractionated heparin SQ
--- NOTE | 2017-02-08 12:26 | Discharge Summary ---
Discharge Summary Date of Service Feb 08, 2017. Discharge Summary Admission Date: Feb 04, 2017 at 16:30 Discharge Date: Feb 08, 2017 Discharge Disposition: Home Principal Diagnosis: 1. Community acquired pneumonia (Left sided) 2. Mild COPD exacerbation Secondary Diagnoses/Problems: 1. Nocturnal hypoxia 2. GERD 3. Hx of CAD 4. Chronic CHF (Diastolic/Systolic) Procedures: IV antibiotics IV steroid--> PO Nebs PT Pending Studies/Follow-Up: . Instructions / Follow-Up Instructions / Follow-Up MEDICATION CHANGES: 1. New medication: Prednisone 30 mg daily x 2 days followed by 20 mg daily x 3 days followed by 10 mg daily x 3 days and than discontinue 2. New medication: Levofloxacin 750 mg q 2 days x 2 more days 3. Inhaler/Nebulizers are to be used only as needed and not on a daily basis ( Albuterol/Ipratropium or Combivent) FOLLOW UP 1. With Dr Elder Nickerson on 02/16/17 at 11:00 AM OXYGEN Continue to use 2 L at night Use 2 L during day time with activity and do not need to wear it at rest Medication Reconciliation New Medications: Prednisone Tab (Prednisone) 10 Mg Tab 10 MG PO UD for 8 Days, #15 TAB Take 30 mg daily x 2 days followed by 20 mg daily x 3 days followed by 10 mg daily for 3 days and than discontinue Guaifenesin Ext Rel (Mucinex Ext Rel) 600 Mg Tabcr 600 MG PO Q12 for 4 Days, #8 TAB Levofloxacin (Levofloxacin) 750 Mg Tab 750 MG PO Q2D@11 for 2 Days, #2 TAB Continued Medications: Aspirin (Aspirin Ec Lo-Dose) 81 Mg Tab 81 MG PO DAILY Atorvastatin (Lipitor) 10 Mg Tab 10 MG PO DAILY, TAB Bisacodyl (Fleet Laxative) 5 Mg Tab 5 MG PO HS PRN for Constipation Calcium Carbonate-Vitamin D (Calcium 600-D) 1 Tab Tab 1 TABLET PO BID Cholecalciferol (Vitamin D) 1,000 Inter.unit Tab 1000 INTER.UNIT PO BID, TAB Diazepam (Valium) 5 Mg Tab 5 MG PO BID PRN for Anxiety or Tremor, TAB Furosemide (Lasix) 20 Mg Tab 20 MG PO DAILY, TAB Take 20 mg by mouth daily. Take additional 20 mg as needed for welling or weight gain greater than 2 lb. Ipratropium [place] Hfa (Atrovent Hfa) 17 Mcg/ Aer 2 PUFFS INH BID, INHALER Ipratropium-Albuterol (Duoneb) Padmini 1 TREATMENT INH BID, INHA Isosorbide Mononitrate (Imdur) 30 Mg Tab 30 MG PO QAM Lutein (Lutein) 40 Mg Cap 40 MG PO DAILY Meclizine Hcl (Meclizine Hcl) 25 Mg Tab 25 MG PO TID PRN for Dizziness, #21 TAB Mometasone Furoate (Nasal) (Mometasone Furoate) 50 Mcg/Act Spr 1 SPRAY FRENCH DAILY Nitroglycerin (Nitrostat) 0.4 Mg Sub 0.4 MG UT UD PRN for Chest Pain, BTL PLACE ONE TABLET UNDER THE TONGUE NEEDED FOR CHEST PAIN. MAXIMUM OF 3 DOSES. Omeprazole (Prilosec) 40 Mg Cap 40 MG PO QPM Oxycodone HCl (Oxycodone HCl) 5 Mg Tab 5 MG PO Q6H PRN for Headache Polyethylene Glycol 3350 (Miralax) 1 Pow Pow 1 DOSE PO HS TAKE 1/4 A CAPFUL AT NIGHT. Potassium Chloride (Potassium Chloride Er) 10 Meq Tab 1 TAB PO BID for 90 Days, #90 TAB 1 Refill Prednisone Tab (Prednisone) 10 Mg Tab 10 MG PO UD, TAB NEEDED RESCUE KIT: 5 btags x 4 days, 4 tabs x 4 days, 3 tabs x 4 days, 2 tabs x 4 days, 1 tab x 4 days. Sennosides-Docusate Sodium (Stool Softener) 1 Tab Tab 2 TABS PO HS Zinc Acetate (Oral) (Galzin) 25 Mg Cap 50 MG PO TID ON EMPTY STOMACH Discontinued Medications: Azithromycin (Zithromax) 250 Mg Tab 250 MG PO UD, #4 TAB Admission Information HPI (per Admitting provider): This is an 86 year old female with PMH of COPD on oxygen HS and PRN, hx of TATYANA treated in 2011, systolic and diastolic CHF, CAD, and other problems listed below who presents as a direct admission from Dr. Diaz's office for L basilar pneumonia. Patient reports cough with occasional sputum production starting 1 week ago. She reports increased dyspnea on exertion from baseline over past few days. She reports central chest pain only during cough. Has rhinorrhea and postnasal drip. She was using Atrovent and Duoneb at home. She stopped Advair a few weeks ago due to oral sores. Has not used Spiriva. She took Azithromycin and prednisone rescue pack x 2 days without relief- last dose yesterday. She was seen by Dr. Diaz in clinic today who obtained CXR which showed left basilar pneumonia. Has occasional bilateral calf cramps. She denies fever, chills, diaphoresis, sore throat, dyspnea at rest, N/V/D, urinary changes, weight gain, edema. No suspected aspiration. She had a seasonal influenza vaccine. No sick contact. No recent hospitalization. Patient follows with Dr. Ocampo for pulmonology. Physical Exam (per Admitting): General Appearance: no apparent distress, + thin, + pertinent finding ( pleasant alert 86 year old female, sitting on edge of bed, son at bedside) Head: normocephalic, atraumatic Eyes: normal inspection, PERRL, sclerae normal ENT: hearing grossly normal, pharynx normal, + pertinent finding (has upper dentures. no underlying oral lesions) Neck: supple, no JVD, trachea midline Respiratory/Chest: chest non-tender, no respiratory distress, no accessory muscle use, + pertinent finding (equal breath sounds. scattered rhonchi. no wheezing. ) Cardiovascular: regular rate, rhythm, no murmur Abdomen/GI: normal bowel sounds, non tender, soft Extremities/Musculoskelatal: no calf tenderness, no pedal edema Neurologic/Psych: alert, normal mood/affect, oriented x 3, + pertinent finding (grossly nonfocal) Skin: normal color, warm/dry Hospital Course COMMUNITY ACQUIRED PNEUMONIA (LEFT SIDED) : MILD COPD EXACERBATION SECONDARY TO ABOVE -Resolved Failed outpatient rx with azithromycin/PO prednisone -Afebrile, Cough + with no sputum, no leucocytosis -IV Levofloxacin 750 mg q 48 hours (Day 4/7)--> change to PO (Day 5/7) -S/P IV solumedrol--> PO prednisone 40 mg daily --> 30 mg daily and taper. Continue with Advair (stopped few days ago due to cold sores) -Nebs -Work up - CXR- done outpatient at Dr Walsh office, Flu - negative, Sputum cx- Moderate yuko RIVERA -Resolved Creatinine bumped up to 1.30--> now resolved -IV fluids x 1 bag NOCTURNAL HYPOXIA -On 3 Litres of oxygen at home q HS and PRN -Currently SaO2 well on RA CAD -Continue aspirin, Imdur, statin -Follows with Dr. Andrews CHRONIC SYSTOLIC AND DIASTOLIC CHF -Appears euvolemic; no failure mentioned in outpatient CXR report -Continue home dose of Lasix from tomorrow INTERMITTENT ORAL LESIONS -No active lesion currently Plans to have biopsy done with oral surgeon as outpatient GERD -Continue PPI DVT PROPHYLAXIS Heparin SQ CODE STATUS Per patient's wishes, in case of cardiac arrest, NO COMPRESSIONS, NO MECHANICAL VENTILATION. Wants CARDIOVERSION if indicated. Has advanced directive. Since this is not a code status option, I have made her code status Level 5 DNR with her wishes stated in the comment section. If she is conscious and develops respiratory failure, would be OK with mechanical ventilation. DISPOSITION Lives with son. PT cleared for discharge. Okay to discharge home today Follows with Dr. Elder Nickerson for primary care Total time spent on discharge = 32 minutes This includes examination of the patient, discharge planning, medication reconciliation, and communication with other providers. Discharge Instructions Discharge Goals Goal(s): Decrease discomfort, Improve function, Improve disease control, Prevent Disease Progression Activity Recommendations Activity Limitations: resume your previous activity (as tolerated prior to admission with assistance) . Instructions / Follow-Up Instructions / Follow-Up MEDICATION CHANGES: 1. New medication: Prednisone 30 mg daily x 2 days followed by 20 mg daily x 3 days followed by 10 mg daily x 3 days and than discontinue 2. New medication: Levofloxacin 750 mg q 2 days x 2 more days 3. Inhaler/Nebulizers are to be used only as needed and not on a daily basis ( Albuterol/Ipratropium or Combivent) FOLLOW UP 1. With Dr Elder Nickerson on 02/16/17 at 11:00 AM OXYGEN Continue to use 2 L at night Use 2 L during day time with activity and do not need to wear it at rest Current Hospital Diet Patient's current hospital diet: AHA Diet (Heart Healthy) Discharge Diet Recommended Diet: AHA Diet (Heart Healthy) Pending Studies Studies pending at discharge: no Medical Emergencies . Who to Call and When: Medical Emergencies: If at any time you feel your situation is an emergency, please call 911 immediately. . Non-Emergent Contact Non-Emergency issues call your: Primary Care Provider . . "Provider Documentation" section prepared by Ania Ingram. VTE Core Measure Inpt VTE Proph given/why not?: Unfractionated heparin SQ
[2017-02-08 14:02] VITALS: BP 156/76; PULSE 64; TEMP 36.7; O2SAT 97
[2017-02-09] MEDS ORDERED: LEVOFLOXACIN 750 MG TAB PO SCH (11:00)
== END 2017-02-08 15:06 | disposition home or self-care (01) | DRG 190 ==
LOC: UNDOADMIN 15:34 → C.MS4W 15:34
PROVIDERS: ADMIT Family Medicine; ATTEND Internal Medicine
DX: J44.0 Chronic obstructive pulmonary disease with (acute) lower respiratory infection (principal); J18.9 Pneumonia, unspecified organism; I50.42 Chronic combined systolic (congestive) and diastolic (congestive) heart failure; N17.9 Acute kidney failure, unspecified; J96.11 Chronic respiratory failure with hypoxia; J44.1 Chronic obstructive pulmonary disease with (acute) exacerbation; R07.89 Other chest pain; I12.9 Hypertensive chronic kidney disease with stage 1 through stage 4 chronic kidney disease, or unspecified chronic kidney disease; N18.3 Chronic kidney disease, stage 3 (moderate); R09.82 Postnasal drip; K21.9 Gastro-esophageal reflux disease without esophagitis; E78.5 Hyperlipidemia, unspecified; I25.10 Atherosclerotic heart disease of native coronary artery without angina pectoris; M81.0 Age-related osteoporosis without current pathological fracture; G47.34 Idiopathic sleep related nonobstructive alveolar hypoventilation; H54.8 Legal blindness, as defined in USA; I25.2 Old myocardial infarction; Z99.81 Dependence on supplemental oxygen; Z66 Do not resuscitate; Z86.19 Personal history of other infectious and parasitic diseases; Z96.651 Presence of right artificial knee joint; Z87.891 Personal history of nicotine dependence; Z79.82 Long term (current) use of aspirin; Z79.52 Long term (current) use of systemic steroids; Z79.891 Long term (current) use of opiate analgesic

== ENCOUNTER → 2017-02-18 | Outpatient (CLI) | payer OTHER ==
[~2017-02-18] MED LIST changes: +ASPI-435 PO; +ATOR10TA82 PO; +ATRIN INH; +CALC1CHW2 PO; +DIAZ5TAB PO; +DOCU-94 PO; -DOCU50CA2 PO; +GFNSR600 PO; +HYDR-5688 PO; +HYDR2.5C37 TOP; +IMDSR/30 PO; +IPRASOL4 INH; -LCTX PO; +LEVO1TAB35 PO; +LVQ750 PO; -MAGIC1 PO; +MOME6000 NAE; +OMEP40CA41 PO; -OXGN; +POTA-74 PO; -POTA20TA16 PO; -PRED-301 PO; +PRED10TA PO; +PRED20TA2 PO; +SENNTAB23 PO; -SPRIN/30 INH
--- NOTE | 2017-02-18 13:46 | DIAGNOSTIC IMAGING REPORT ---
CHEST 2 VIEWS ROUTINE CLINICAL HISTORY: J18.9 [id number] pneumonia COMPARISON STUDY: 08/06/2016 FINDINGS: Continued improvement of the basilar pulmonary nodularity and/or infiltrative change. Internal improvement of the bronchovascular prominence and is compared to the prior study. Minimal residual left retrocardiac atelectatic change. IMPRESSION: Baseline emphysematous and chronic fibrotic change. Improved bilateral parenchymal infiltrative and bronchovascular change with no residual significant nodularity. Minimal residual atelectatic change left retrocardiac region Electronically signed by: Wilfredo Jaramillo M.D. 02/18/2017 1:44 PM Dictated Date/Time: 02/18/2017 1:37 PM
== END | disposition home or self-care (01) ==
LOC: C.RAD1850 13:25
PROVIDERS: ATTEND Physician Assistant Medical
DX: J18.9 Pneumonia, unspecified organism (principal)

== ENCOUNTER → 2017-02-25 | Outpatient (CLI) | payer OTHER ==
--- NOTE | 2017-02-25 15:30 | DIAGNOSTIC IMAGING REPORT ---
CHEST 2 VIEWS ROUTINE HISTORY: Follow-up pneumonia. COMPARISON: Chest 02/18/2017. FINDINGS: No pneumothorax. No pleural effusions. The heart is normal in size. The lungs are hyperexpanded with apical dominant emphysematous changes. No change in left basilar reticulonodular densities. The right lung is clear. IMPRESSION: No change in the left basilar reticulonodular densities. Recommend one month chest x-ray follow-up to ensure resolution. Electronically signed by: Basil Ruggiero M.D. 02/25/2017 3:28 PM Dictated Date/Time: 02/25/2017 3:23 PM
== END | disposition home or self-care (01) ==
LOC: C.RAD1850 15:08
PROVIDERS: ATTEND Physician Assistant Medical
DX: J18.9 Pneumonia, unspecified organism (principal)

== ENCOUNTER 2017-06-04 15:32 | Emergency (ER) | payer OTHER ==
[~2017-06-04] VITALS: Ht 157.5 cm; Wt 46.0 kg
[~2017-06-04 15:32] MED LIST changes: -ADVIN25/60 INH; -ASPI-435 PO; -ATOR10TA82 PO; -ATRIN INH; -CALC1CHW2 PO; -DIAZ5TAB PO; -DOCU-94 PO; -HYDR-5688 PO; -HYDR2.5C37 TOP; -IMDSR/30 PO; -IPRASOL4 INH; -LEVO1TAB35 PO; -MECL1TAB42 PO; -OMEP40CA41 PO; -PRED20TA2 PO
[2017-06-04 15:37] VITALS: TEMP 36.4; Ht 157.5 cm; Wt 46.0 kg
[2017-06-04] MEDS ORDERED: ALBUT/IPRATROP 3MG/0.5MG NEB 3 ML VIAL INH STA ×2 (16:17→16:52)
[2017-06-04] MEDS ORDERED: METHYLPREDNISOLONE IV 40 MG in SYRINGE 0 ML IV STA (16:20)
--- NOTE | 2017-06-04 16:29 | DIAGNOSTIC IMAGING REPORT ---
CHEST ONE VIEW PORTABLE CLINICAL HISTORY: Atypical chest pain. Difficulty breathing. COMPARISON STUDY: 02/25/2017 FINDINGS: The patient is hyperinflated. The chest has an emphysematous configuration. Heart is normal in size. There is no failure. There is no lobar consolidation. Linear opacities at the left lung base are felt to be atelectatic.[ IMPRESSION: Emphysema. Left basilar atelectasis. No evidence of failure. No evidence of lobar consolidation. Electronically signed by: Walter Boston M.D. 06/04/2017 4:28 PM Dictated Date/Time: 06/04/2017 4:26 PM
[2017-06-04] MEDS ORDERED: DIAZ5TAB PO (17:34)
[2017-06-04] MEDS ORDERED: ASPI-435 PO (17:37)
[2017-06-04] MEDS ORDERED: ATRIN INH (17:37)
[2017-06-04] MEDS ORDERED: DOCU-94 PO (17:37)
[2017-06-04] MEDS ORDERED: HYDR2.5C37 TOP (17:37)
[2017-06-04] MEDS ORDERED: CHOL100010 PO (17:37)
[2017-06-04] MEDS ORDERED: ADVIN25/60 INH (17:37)
[2017-06-04] MEDS ORDERED: IMDSR/30 PO (17:37)
[2017-06-04] MEDS ORDERED: ATOR10TA88 PO (17:37)
[2017-06-04] MEDS ORDERED: IPRASOL4 INH (17:37)
[2017-06-04] MEDS ORDERED: CALC1CHW2 PO (17:37)
[2017-06-04 17:40] LABS: BASO % 0.4 %; BASO ABS # 0.02 K/uL (0-0.2); COMPLETE YES; EOS % 1.3 %; HEMATOCRIT 38.8 % (37-47); LYMPH % 20.4 %; LYMPH ABS # 0.92 K/uL (1.2-3.4); MEAN CELL VOLUME 79.8 fL (80-100); MEAN CORPUSCULAR HEMOGLOBIN 25.1 pg (25-34); MEAN CORPUSCULAR HGB CONC 31.4 g/dl (32-36); MEAN PLATELET VOLUME 10.5 fL (7.4-10.4); MONO % 8.4 %; NEUT % 69.5 %; PLATELET COUNT 200 K/uL (130-400); RED BLOOD COUNT 4.86 M/uL (4.2-5.4)
[2017-06-04 17:57] LABS: BLOOD UREA NITROGEN 20 mg/dl (7-18); BUN/CREATININE RATIO 18.5 (10-20); CARBON DIOXIDE 28 mmol/L (21-32); CHLORIDE 108 mmol/L (98-107); GLUCOSE 106 mg/dl (70-99); POTASSIUM 3.6 mmol/L (3.5-5.1); SODIUM 143 mmol/L (136-145)
[2017-06-04 18:02] LABS: CKMB/CK RATIO 2.1 (0-3.0)
[2017-06-04] MEDS ORDERED: OPTIRAY 320 IV PRN (18:30)
--- NOTE | 2017-06-04 18:40 | DIAGNOSTIC IMAGING REPORT ---
CT ANGIOGRAM OF THE CHEST CLINICAL HISTORY: Atypical chest pain. Shortness of breath. COMPARISON STUDY: Chest x-ray dated 06/04/2017, chest CT dated 09/21/2016 TECHNIQUE: Following the IV administration of 94 mL of Optiray-320, CT angiogram of the thorax was performed from the thoracic inlet to the lung bases utilizing the pulmonary embolus protocol. Images are reviewed in the axial, sagittal, and coronal planes. IV contrast was administered without complication. MIP imaging was performed. A dose lowering technique was utilized adhering to the principles of ALARA. CT DOSE: 207.34 mGy.cm FINDINGS: There is a multinodular thyroid gland. There are multiple hypodense and hyperdense renal masses, likely representing a combination of cysts and hyperdense cysts. The largest cyst on the right measures 43 mm. The largest cyst on the left measures 28 mm. No pathologically enlarged axillary mediastinal or hilar lymph nodes were visualized. There was no evidence of thoracic aortic dilatation. There were no pulmonary artery filling defects to indicate acute pulmonary embolism. No pleural effusions are visualized. There is severe pulmonary emphysema. There are multiple solid pulmonary nodules. These include a stable 10 mm right upper lobe pulmonary nodule. There are stable solid right middle lobe pulmonary nodules measuring 12 mm and 8 mm respectively. There is a stable 11 mm right lower lobe pulmonary nodule. There are new clustered lingular nodules, statistically inflammatory. There is a stable 22 mm irregular marginated left lower lobe pulmonary nodule and adjacent irregular marginated 14 mm nodule. There is a new irregular right lower lobe opacity measuring 24 x 11 mm. An infectious etiology is favored. IMPRESSION: 1. No CT evidence of acute pulmonary embolism 2. Severe emphysema 3. Multiple bilateral pulmonary nodules, most of which remain stable. New nodular opacities within the lingula and right lower lobe are statistically infectious/inflammatory. A 3-6 month follow-up CT scan subsequent antibiotic therapy is recommended 4. Multinodular thyroid gland 5. Bilateral renal cysts and hyperdense cysts Electronically signed by: Walter Boston M.D. 06/04/2017 6:39 PM Dictated Date/Time: 06/04/2017 6:30 PM
[2017-06-04] MEDS ORDERED: PRED20TA2 PO (18:50)
[2017-06-04] MEDS ORDERED: LEVO1TAB35 PO (18:50)
[2017-06-04] MEDS ORDERED: LEVOFLOXACIN 250 MG TAB PO ONE (19:00)
--- NOTE | 2017-06-04 19:03 | EMERGENCY ROOM VISIT NOTE ---
History Report prepared by Jozef: Tanya Nguyen Under the Supervision of: Dr. Derek Lozano D.O. First contact with patient: 16:09 Chief Complaint: SHORTNESS OF BREATH Stated Complaint: TROUBLE BREATHING Nursing Triage Summary: pt saw pcp today for sob and referred to ER rosa elena pain pt has nonproductive cough no weight gain pt has copd on continuous oxygen History of Present Illness The patient is a 86 year old female who presents to the Emergency Room with complaints of constant shortness of breath beginning last night. Her symptoms are worsened with movement. She did a breathing treatment at home, which helped to alleviate her symptoms slightly. She went to see her PCP this afternoon for her symptoms and was advised to come to the ED for further evaluation. She has a history of COPD and states that this feels like her typical COPD exacerbation. She has a dry cough that she states is chronic. The patient wears 3L of O2 at night and PRN throughout the day. She has been wearing O2 since she went to her PCP's office today. Pt denies headache, change in vision, fevers, chest pain, nausea, vomiting, diarrhea, pain with urination, and melena. She does not take any blood thinners. She has a history of an VA and states that this does not feel similar to her previous cardiac issues. The patient states that her symptoms have improved since she arrived in the ED. Source of History: patient Onset: last night Position: chest (respiratory) Quality: other (shortness of breath) Timing: constant Modifying Factors (Worsening): exertion Modifying Factors (Relieving): oxygen, other (breathing treatment) Associated Symptoms: + cough, No fevers, No headache, No chest pain, No nausea, No vomiting, No melena, No diarrhea, No urinary symptoms Review of Systems See HPI for pertinent positives & negatives. A total of 10 systems reviewed and were otherwise negative. Past Medical & Surgical Medical Problems: (1) Benign hypertension (2) CKD (chronic kidney disease), stage III (3) COPD (chronic obstructive pulmonary disease) (4) Coronary artery disease (5) Dyslipidemia (6) Failure of outpatient treatment (7) Gastroesophageal reflux disease (8) History of endometrial cancer (9) History of TATYANA infection (10) KNEE JOINT REPLACEMENT STATUS (11) Legal blindness (12) MACULAR DEGENERATION NOS (13) VA (myocardial infarction) (14) Osteoporosis (15) OSTEOPOROSIS NEC (16) Pneumonia (17) Pseudogout (18) Pseudogout (19) Pseudogout (20) Refractory migraine without aura (21) Symptomatic bradycardia (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, 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 Surgical Problems: (1) History of cataract surgery (2) History of hysterectomy (3) S/P bronchoscopy (4) Status post right knee replacement Family History Cancer Diabetes mellitus Heart disease Hypertension Social History Smoking Status: Former Smoker Alcohol Use: none Drug Use: none Marital Status: Housing Status: lives with family Occupation Status: retired Current/Historical Medications Scheduled Aspirin (Aspirin 81), 81 MG PO QAM Atorvastatin (Lipitor), 10 MG PO HS Calcium Carbonate-Vitamin D (Caltrate 600+D 600-400 mg-Unit), 1 TAB PO BID Cholecalciferol (Vitamin D), 1,000 UNIT PO BID Diazepam (Valium), 5 MG PO BID Docusate Sodium (Colace), 100 MG PO HS Fluticasone Prop/Salmeterol (Advair Diskus 250/50 60 Dose), 1 PUFF INH BID Furosemide (Lasix), 20 MG PO DAILY Hydrocortisone 2.5% (Rectal) (Anusol-Hc 2.5%), 1 APPLN TOP BID Ipratropium Gill (Atrovent Hfa), 2 PUFFS INH BID Ipratropium-Albuterol (Duoneb), 1 TREATMENT INH BID Isosorbide Mononitrate (Isosorbide Mononitrate ER), 30 MG PO QAM Levofloxacin (Levaquin), 750 MG PO Q2D Lutein (Lutein), 80 MG PO QAM Omeprazole (Prilosec), 40 MG PO QAM Polyethylene Glycol 3350 (Miralax), 1 DOSE PO HS Potassium Chloride (Potassium Chloride Er), 10 MEQ PO BID Prednisone (Prednisone Tab), 0 PO DAILY Zinc Acetate (Oral) (Galzin), 75 MG PO UD Scheduled PRN Bisacodyl (Fleet Laxative), 5 MG PO HS PRN for Constipation Mometasone Furoate (Nasal) (Mometasone Furoate), 1 SPRAY FRENCH DAILY PRN for Nasal Congestion Nitroglycerin (Nitrostat), 0.4 MG UT UD PRN for Chest Pain Oxycodone HCl (Oxycodone HCl), 5 MG PO Q6H PRN for Headache Allergies Coded Allergies: Penicillins (Verified Allergy, Intermediate, AMOXICILLIN-HIVES, 06/04/17) Polymyxin B (Verified Allergy, Unknown, POLYTRIM, 06/04/17) Trimethoprim (Verified Allergy, Unknown, POLYTRIM, 06/04/17) Physical Exam Vital Signs Date Time Temp Pulse Resp B/P (MAP) Pulse Ox O2 Delivery O2 Flow Rate FiO2 06/04/17 17:29 59 16 162/67 100 Room Air 06/04/17 15:39 96 Nasal Cannula 3.0 06/04/17 15:37 36.4 66 20 96 Nasal Cannula 3.0 Physical Exam GENERAL: alert, sitting up in bed, thin, cachetic appearing, disheveled, no distress, non-toxic, talking in full sentences. EYE EXAM: normal conjunctiva OROPHARYNX: no exudate, no erythema, lips, buccal mucosa, and tongue normal and mucous membranes are moist NECK: supple, no nuchal rigidity, no adenopathy, non-tender, no JVD LUNGS: Faint wheezing bilaterally. Normal chest wall mechanics HEART: no murmurs, S1 normal and S2 normal ABDOMEN: abdomen soft, non-tender, normo-active bowel sounds, no masses, no rebound or guarding. BACK: Back is symmetrical on inspection and there is no deformity, no midline tenderness, no CVA tenderness. SKIN: no rashes and no bruising UPPER EXTREMITIES: upper extremities are grossly normal. LOWER EXTREMITIES: No pitting edema. Calves equal bilaterally. NEURO EXAM: Normal sensorium, cranial nerves II-XII grossly intact, normal speech, no gross weakness of arms, no gross weakness of legs. Medical Decision & Procedures ER Provider Diagnostic Interpretation: Radiology results as stated below per my review and the radiologist's interpretation: CT ANGIOGRAM OF THE CHEST CLINICAL HISTORY: Atypical chest pain. Shortness of breath. COMPARISON STUDY: Chest x-ray dated 06/04/2017, chest CT dated 09/21/2016 TECHNIQUE: Following the IV administration of 94 mL of Optiray-320, CT angiogram of the thorax was performed from the thoracic inlet to the lung bases utilizing the pulmonary embolus protocol. Images are reviewed in the axial, sagittal, and coronal planes. IV contrast was administered without complication. MIP imaging was performed. A dose lowering technique was utilized adhering to the principles of ALARA. CT DOSE: 207.34 mGy.cm FINDINGS: There is a multinodular thyroid gland. There are multiple hypodense and hyperdense renal masses, likely representing a combination of cysts and hyperdense cysts. The largest cyst on the right measures 43 mm. The largest cyst on the left measures 28 mm. No pathologically enlarged axillary mediastinal or hilar lymph nodes were visualized. There was no evidence of thoracic aortic dilatation. There were no pulmonary artery filling defects to indicate acute pulmonary embolism. No pleural effusions are visualized. There is severe pulmonary emphysema. There are multiple solid pulmonary nodules. These include a stable 10 mm right upper lobe pulmonary nodule. There are stable solid right middle lobe pulmonary nodules measuring 12 mm and 8 mm respectively. There is a stable 11 mm right lower lobe pulmonary nodule. There are new clustered lingular nodules, statistically inflammatory. There is a stable 22 mm irregular marginated left lower lobe pulmonary nodule and adjacent irregular marginated 14 mm nodule. There is a new irregular right lower lobe opacity measuring 24 x 11 mm. An infectious etiology is favored. IMPRESSION: 1. No CT evidence of acute pulmonary embolism 2. Severe emphysema 3. Multiple bilateral pulmonary nodules, most of which remain stable. New nodular opacities within the lingula and right lower lobe are statistically infectious/inflammatory. A 3-6 month follow-up CT scan subsequent antibiotic therapy is recommended 4. Multinodular thyroid gland 5. Bilateral renal cysts and hyperdense cysts Electronically signed by: Walter Boston M.D. 06/04/2017 6:39 PM Dictated Date/Time: 06/04/2017 6:30 PM The status of this report is Signed. Draft = Not yet reviewed or approved by Radiologist. Signed = Reviewed and approved by Radiologist. <AttendingPhy></AttendingPhy> <FamilyPhy>Elder Nickerson DArely</FamilyPhy> < PrimaryPhy>Elder Nickerson D.O.</PrimaryPhy> <UnitNumber>[id number]</ UnitNumber> <VisitNumber>[id number]</VisitNumber> <PatientName>MALIK CORTES </PatientName> <DateOfBirth>1930</DateOfBirth> <Location>[facility]</Location> <ServiceDate>06/04/17</ServiceDate> <MNE>ESINDI</MNE> <OrderingPhy>Lozano CHEST ONE VIEW PORTABLE CLINICAL HISTORY: Atypical chest pain. Difficulty breathing. COMPARISON STUDY: 02/25/2017 FINDINGS: The patient is hyperinflated. The chest has an emphysematous configuration. Heart is normal in size. There is no failure. There is no lobar consolidation. Linear opacities at the left lung base are felt to be atelectatic.[ IMPRESSION: Emphysema. Left basilar atelectasis. No evidence of failure. No evidence of lobar consolidation. Electronically signed by: Walter Boston M.D. 06/04/2017 4:28 PM Dictated Date/Time: 06/04/2017 4:26 PM Laboratory Results 06/04/17 16:30 Red Blood Count 4.86, Mean Corpuscular Volume 79.8, Mean Corpuscular Hemoglobin 25.1, Mean Corpuscular Hemoglobin Concent 31.4, Mean Platelet Volume 10.5, Neutrophils (%) (Auto) 69.5, Lymphocytes (%) (Auto) 20.4, Monocytes (%) (Auto) 8.4, Eosinophils (%) (Auto) 1.3, Basophils (%) (Auto) 0.4, Neutrophils # (Auto) 3.12, Lymphocytes # (Auto) 0.92, Monocytes # (Auto) 0.38, Eosinophils # (Auto) 0.06, Basophils # (Auto) 0.02 06/04/17 16:30 Test 06/04/17 16:30 White Blood Count 4.50 K/uL (4.8-10.8) Red Blood Count 4.86 M/uL (4.2-5.4) Hemoglobin 12.2 g/dL (12.0-16.0) Hematocrit 38.8 % (37-47) Mean Corpuscular Volume 79.8 fL (80-100) Mean Corpuscular Hemoglobin 25.1 pg (25-34) Mean Corpuscular Hemoglobin Concent 31.4 g/dl (32-36) Platelet Count 200 K/uL (130-400) Mean Platelet Volume 10.5 fL (7.4-10.4) Neutrophils (%) (Auto) 69.5 % Lymphocytes (%) (Auto) 20.4 % Monocytes (%) (Auto) 8.4 % Eosinophils (%) (Auto) 1.3 % Basophils (%) (Auto) 0.4 % Neutrophils # (Auto) 3.12 K/uL (1.4-6.5) Lymphocytes # (Auto) 0.92 K/uL (1.2-3.4) Monocytes # (Auto) 0.38 K/uL (0.11-0.59) Eosinophils # (Auto) 0.06 K/uL (0-0.5) Basophils # (Auto) 0.02 K/uL (0-0.2) RDW Standard Deviation 41.6 fL (36.4-46.3) RDW Coefficient of Variation 14.2 % (11.5-14.5) Immature Granulocyte % (Auto) 0.0 % Immature Granulocyte # (Auto) 0.00 K/uL (0.00-0.02) D-Dimer 1990 ug/L FEU (0-500) Anion Gap 7.0 mmol/L (3-11) Est Creatinine Clear Calc Drug Dose 27.6 ml/min Estimated GFR () 53.4 Estimated GFR (Non- 46.1 BUN/Creatinine Ratio 18.5 (10-20) Calcium Level 9.0 mg/dl (8.5-10.1) Total Creatine Kinase 80 U/L (26-192) Creatine Kinase MB 1.7 ng/ml (0.5-3.6) Creatine Kinase MB Ratio 2.1 (0-3.0) Troponin I < 0.015 ng/ml (0-0.045) Pro-B-Type Natriuretic Peptide 352 pg/ml (0-1800) Laboratory results per my review. Medications Administered Medications (Trade) Dose Ordered Sig/Omkar Route Start Time Stop Time Status Last Admin Dose Admin Albuterol/ Ipratropium (Duoneb) 3 ml NOW STAT INH 06/04/17 16:17 06/04/17 16:18 DC 06/04/17 16:17 3 ML Methylprednisolone Sodium Succinate 40 mg/Syringe 0.64 ml @ 1.5 mls/min ONE STAT IV 06/04/17 16:20 06/04/17 16:21 DC 06/04/17 16:20 1.5 MLS/MIN Albuterol/ Ipratropium (Duoneb) 3 ml NOW STAT INH 7/21/17 16:52 06/04/17 16:54 DC 06/04/17 16:52 3 ML ECG Indication: SOB/dyspnea Rate (beats per minute): 62 Rhythm: normal sinus Findings: 1st degree AV block, nonspecific-ST abn (Inferior), left axis deviation, no ectopy Comparison ECG Date: 10/03/2016 Change: no significant change ED Course ED COURSE: Vital signs were reviewed and showed hypertensive. The patients medical record was reviewed The above diagnostic studies were performed and reviewed. ED treatments and interventions as stated above. 1609: The patient was evaluated in room C11B. A complete history and physical examination was performed. 1617: Duoneb 3 ml INH 1620: Methylprednisolone Sodium Succinate 40 mg/Syringe 0.65 ml @ 1.5 mls/min IV 1649: I reassessed the patient at this time. She is feeling better and resting comfortably. 1652: Duoneb 3 ml INH 1711: The patient is resting more comfortably. 1805: I updated the patient and she is going to CT. She feels back to baseline at this time. 1830: Patient was updated at bedside. 1900: Upon reevaluation, the patient is feeling better and resting comfortably. I discussed my findings with the patient and she understands and agrees with the treatment plan. Based on the patients age, coexisting illnesses, exam and lab findings the decision to treat as an outpatient was made. The patient remained stable while under my care. The patient appeared well at the time of discharge. Medical Decision Differential diagnoses includes but is not limited to pneumonia, bronchitis, COPD/Asthma exacerbation, pneumothorax, pulmonary embolism, congestive heart failure, acute coronary syndrome. Patient is an 86-year-old female who presents the ER for shortness of breath which started last night. She denies any chest pain. History of MIs but notes this does not feel the same. No arm pain or jaw pain. No nausea. She admits that this does feel like her COPD exacerbations. On room air she is satting 95% . Chest x-ray was unremarkable. CBC along with BMP was unremarkable. Troponin was negative with shortness of breath that has been present for greater than 8 hours. BNP was unremarkable. No pitting edema. No JVD. She had faint wheezing. With neb treatment she complete resolution of her symptoms. She was given steroids as well. D-dimer was elevated. CT PE performed and shows poor any nodules which family is aware of and she will follow-up CT in 3-6 months. He also showed a likely infectious process. She is not hypoxic. Afebrile. Vitals are unremarkable. No leukocytosis. She requests to be discharged and felt this was reasonable. I discharged her on Levaquin 750 mg every other day for pneumonia and prednisone 20 mg daily for 5 days. The prescription wrote was wrong and consequently I called [facility] to fix the prescription. Discussed with Pt concerning signs and symptoms to watch out for. Pt was instructed to follow up with their PCP and discussed with the patient their option to return to the ED at anytime for persistent or worsening symptoms. The appropriate anticipatory guidance and out-patient management, including indications for return to the emergency department, were explained at length to the patient and understood. Medication Reconcilliation Current Medication List: was personally reviewed by me Blood Pressure Screening Patient's blood pressure: Elevated blood pressure Blood pressure disposition: Elevated BP felt to be situational Impression Primary Impression: COPD exacerbation Additional Impression: Dyspnea Scribe Attestation The scribe's documentation has been prepared under my direction and personally reviewed by me in its entirety. I confirm that the note above accurately reflects all work, treatment, procedures, and medical decision making performed by me. Departure Information Dispostion Home / Self-Care Prescriptions Prednisone (Prednisone Tab) 20 Mg Tab 0 PO DAILY, #5 TAB 2 TABS DAILY FOR 2 DAYS, THEN 1 TAB DAILY FOR 2 DAYS, THEN 1/2 TAB DAILY FOR 2 DAYS. Prov: Derek Lozano, DO 06/04/17 Levofloxacin (Levaquin) 750 Mg Tab 750 MG PO Q2D, #5 TAB Prov: Derek Lozano, DO 06/04/17 Referrals Elder Nickerson, D.OClarissa (PCP) Forms HOME CARE DOCUMENTATION FORM, IMPORTANT VISIT INFORMATION Patient Instructions COPD - [facility], My [facility] Additional Instructions Please follow up with your primary care doctor with in the next 24 hours. Any worsening of your symptoms, please return to the ED immediately. This includes new or worsening shortness of breath, chest pain, passing out, weakness or numbness in your arms or legs, or any other concerning signs or symptoms from your standpoint. Please take steroids as prescribed. Please use your inhaler as prescribed. Problem Qualifiers Additional Impression: Dyspnea Dyspnea type: unspecified Qualified Codes: R06.00 - Dyspnea, unspecified
[2017-06-04 19:19] VITALS: BP 135/60; PULSE 74; O2SAT 95
[2017-06-04] MEDS ORDERED: OMEP40CA41 PO (19:21)
== END 2017-06-04 19:22 | disposition home or self-care (01) ==
LOC: C.EDB 15:35 → C.EDC 19:22
DX: J44.1 Chronic obstructive pulmonary disease with (acute) exacerbation (principal); I44.0 Atrioventricular block, first degree; I12.9 Hypertensive chronic kidney disease with stage 1 through stage 4 chronic kidney disease, or unspecified chronic kidney disease; N18.3 Chronic kidney disease, stage 3 (moderate); I25.10 Atherosclerotic heart disease of native coronary artery without angina pectoris; E78.5 Hyperlipidemia, unspecified; K21.9 Gastro-esophageal reflux disease without esophagitis; I50.42 Chronic combined systolic (congestive) and diastolic (congestive) heart failure; M81.0 Age-related osteoporosis without current pathological fracture; I25.2 Old myocardial infarction; Z85.42 Personal history of malignant neoplasm of other parts of uterus; Z90.710 Acquired absence of both cervix and uterus; Z96.651 Presence of right artificial knee joint; Z98.49 Cataract extraction status, unspecified eye; Z98.890 Other specified postprocedural states; Z87.891 Personal history of nicotine dependence; Z79.82 Long term (current) use of aspirin; Z79.899 Other long term (current) drug therapy; Z80.9 Family history of malignant neoplasm, unspecified; Z83.3 Family history of diabetes mellitus; Z82.49 Family history of ischemic heart disease and other diseases of the circulatory system; Z88.0 Allergy status to penicillin; Z88.8 Allergy status to other drugs, medicaments and biological substances

== ENCOUNTER 2017-08-02 15:24 | Emergency (ER) | payer OTHER ==
[~2017-08-02] VITALS: Ht 157.5 cm; Wt 45.5 kg
[~2017-08-02 15:24] MED LIST changes: +ADVIN25/60 INH; +ASPI-435 PO; -ASPI81TA57 PO; -ATOR-14 PO; +ATOR10TA88 PO; +ATRIN INH; +CALC1CHW2 PO; -CALCTAB23 PO; +DIAZ5TAB PO; +DOCU-94 PO; -GFNSR600 PO; +HYDR2.5C37 TOP; +IMDSR/30 PO; -IPRA17AE2 INH; -IPRASOL34 INH; +IPRASOL4 INH; -ISOS30TA13 PO; +LEVO1TAB35 PO; -LVQ750 PO; +OMEP40CA41 PO; -PRED10TA PO; +PRED20TA2 PO; -SENNTAB23 PO
[2017-08-02 15:26] VITALS: TEMP 36.3; Ht 157.5 cm; Wt 45.5 kg
[2017-08-02] MEDS ORDERED: HYDROCODONE/ACETAMOPHEN 5/325MG TAB PO STA (15:41)
--- NOTE | 2017-08-02 16:21 | DIAGNOSTIC IMAGING REPORT ---
PA CHEST WITH RIGHT-SIDED RIB SERIES CLINICAL HISTORY: Fall with right-sided chest wall pain. FINDINGS: A PA chest radiograph with 4 additional views from a right-sided rib series is compared to chest x-ray and chest CT dated 06/04/2017. The cardiomediastinal silhouette is unremarkable. Advanced emphysema and chronic interstitial thickening are similar to previous. Foci of pulmonary recommend nodularity are grossly unchanged from the recent chest CT scan. There is no evidence of superimposed airspace consolidation or pleural effusion. No pneumothorax is seen. The skeletal structures are osteopenic. There is no radiographic evidence of acute/distracted right-sided rib fracture on the rib series as clinically queried. The remainder of the bony thorax is grossly intact. IMPRESSION: 1. Advanced emphysema. 2. Numerous foci of parenchymal nodularity are identified. These are grossly similar to 06/04/[address] scan. See report of that chest CT for detailed findings. 3. There is no radiographic evidence of acute/distracted right-sided rib fracture as clinically queried. Electronically signed by: Gene Greer M.D. 08/02/2017 4:20 PM Dictated Date/Time: 08/02/2017 4:17 PM
--- NOTE | 2017-08-02 16:39 | EMERGENCY ROOM VISIT NOTE ---
ED Visit Note First contact with patient: 15:35 CHIEF COMPLAINT: Right Rib injury HISTORY OF PRESENT ILLNESS: This 86-year-old female presents the ER with family members with chief complaint of right rib pain. The patient states that she was playing on the sofa and rolled off and landed on her right ribs. The patient states that she landed on a carpeted floor. The patient denies hitting her head or any other injuries. The patient is legally blind. The patient is not on any blood thinners. The patient states that it hurts to move or breathe. She does have a history of osteoporosis. REVIEW OF SYSTEMS: 6 system review was performed and was negative unless stated otherwise in history of present illness. PMH: The patient is healthy; there is no significant medical or surgical history. SOCIAL HISTORY: Patient lives with family members PHYSICAL EXAM: Vital Signs: Were reviewed Reviewed Nurse's notes. GENERAL: 86- year-old thin white female appears uncomfortable secondary to pain. MENTAL Status: Alert and oriented 3. LUNGS: Clear to auscultation and breath sounds equal, no wheezes, rales, or rhonchi. HEART: Heart sounds are regular without murmurs, ectopy, gallop, or rub. CHEST WALL: The chest wall is tender to palpation over the right lateral and right posterior chest wall. Left side is nontender. The patient is very kyphotic. EMERGENCY DEPARTMENT COURSE: The patient was evaluated. The patient was given [place] 5/325 mg one tablet by mouth for pain. X-ray of the right ribs was ordered and interpreted by the radiologist and myself. DIAGNOSTICS: Patient Name: MALIK CORTES Unit Number: [id number] Dictated: 08/02/171616 Transcribed: 08/02/171616 EV Printed Date/Time: [~ rep prt dt]/[~ rep prt tm] [~ rep ct labl] - [~ rep ct ivnm] [facility] [place] [address] Dictated: 08/02/171616 Transcribed: 08/02/171616 EV Printed Date/Time: [~ rep prt dt]/[~ rep prt tm] [~ rep ct labl] - [~ rep ct ivnm] PA CHEST WITH RIGHT-SIDED RIB SERIES CLINICAL HISTORY: Fall with right-sided chest wall pain. FINDINGS: A PA chest radiograph with 4 additional views from a right-sided rib series is compared to chest x-ray and chest CT dated 06/04/2017. The cardiomediastinal silhouette is unremarkable. Advanced emphysema and chronic interstitial thickening are similar to previous. Foci of pulmonary recommend nodularity are grossly unchanged from the recent chest CT scan. There is no evidence of superimposed airspace consolidation or pleural effusion. No pneumothorax is seen. The skeletal structures are osteopenic. There is no radiographic evidence of acute/distracted right-sided rib fracture on the rib series as clinically queried. The remainder of the bony thorax is grossly intact. IMPRESSION: 1. Advanced emphysema. 2. Numerous foci of parenchymal nodularity are identified. These are grossly similar to 06/04/[address] scan. See report of that chest CT for detailed findings. 3. There is no radiographic evidence of acute/distracted right-sided rib fracture as clinically queried. Electronically signed by: Gene Greer M.D. 08/02/2017 4:20 PM Dictated Date/Time: 08/02/2017 4:17 PM The status of this report is Signed. Draft = Not yet reviewed or approved by Radiologist. Signed = Reviewed and approved by Radiologist. <AttendingPhy></AttendingPhy> <FamilyPhy>Elder Nickerson, D.O.</FamilyPhy> < PrimaryPhy>Elder Nickerson, D.O.</PrimaryPhy> <UnitNumber>[id number]</ UnitNumber> <VisitNumber>[id number]</VisitNumber> <PatientName>SEBASTIANMALIK </PatientName> <DateOfBirth>1930</DateOfBirth> <Location>[facility]</Location> <ServiceDate>08/02/17</ServiceDate> <MNE>ESINDI</MNE> <OrderingPhy>Minoo Jaramillo-C</OrderingPhy> <OrderingPhyMNE>f rep ord dr bliss</OrderingPhyMNE> < DictatingPhyMNE>f rep dict mnjavier</DictatingPhyMNE> <CCListMNE>f rep ct mne</ CCListMNE> <AdmittingPhyMNE>f pt admit dr bliss</AdmittingPhyMNE> <AttendingPhyMNE >f pt attend dr bliss</AttendingPhyMNE> <ConsultingPhyMNE>f pt consult dr bliss</ConsultingPhyMNE> <FamilyPhyMNE>f pt fam dr bliss</FamilyPhyMNE> <OtherPhyMNE>f pt other dr bliss</OtherPhyMNE> < PrimaryPhyMNE>f pt prim care dr bliss</PrimaryPhyMNE> <ReferringPhyMNE>f pt referring dr bliss</ReferringPhyMNE> The patient was informed of the findings. The patient was independently evaluated by Dr. meeks who is requesting that we get a CT of the chest to evaluate for occult fracture. The patient was given incentive spirometry instructions. CT of the chest was ordered and interpreted by the radiologist as above. DIAGNOSTICS:CT SCAN OF THE CHEST WITHOUT IV CONTRAST CLINICAL HISTORY: Fall with right-sided chest pain. COMPARISON STUDY: Chest CT scans dated 06/04/2017 and 07/30/2013. Chest radiograph dated 08/02/2017. TECHNIQUE: CT scan of the thorax was performed from the thoracic inlet to the upper abdomen. Images are reviewed in the axial, sagittal, and coronal planes. IV contrast was not administered for this examination as per the referring clinician. A dose lowering technique was utilized adhering to the principles of ALARA. CT DOSE: 269.54 mGy.cm FINDINGS: Thyroid: Imaged portions of the thyroid gland are normal in size and attenuation. Bilateral low-attenuation thyroid nodules measure up to 1.6 cm. Thoracic aorta: There is atherosclerotic calcification of the thoracic aorta, which is normal in caliber and demonstrates standard 3-vessel arch anatomy. Heart: The heart is normal in size and without pericardial effusion. Coronary arteries are densely calcified. The pulmonary trunk is normal in caliber. Lungs and pleural spaces: Advanced emphysema is again noted. Trace pleural effusions are identified. There is no airspace consolidation or pneumothorax. The trachea and central airways are clear. Numerous foci of parenchymal nodularity are seen throughout both lungs. These are largely unchanged from 06/04/2017. Several of these have been present dating back to 2012. A registration representative nodule in the right upper lobe seen on image #145 measures 1.2 cm. A lesion in the left lower lobe seen on image #197 measures up to 2.7 cm, and a right lower lobe nodule on image #195 measures up to 1.2 cm. A focus of nodularity in the left upper lobe is new from previous as seen on image #97. This measures up to 1.5 cm. Mediastinum: There is no mediastinal lymphadenopathy. Dahiana: Not well assessed but IV contrast. Axillae: There is no axillary lymphadenopathy. Upper abdomen: The kidneys are atrophic. A 4.5 cm cyst is noted in the right upper pole. Additional smaller cysts are identified. Numerous bilateral complex renal lesions are identified, likely representing hemorrhagic cysts. These were also seen on prior examinations. Small nonobstructing renal calculi are noted. A small hiatal hernia is observed. Skeletal structures: The skeletal structures are osteopenic. No fracture is seen. Advanced arthritic change is noted in the shoulders. Advanced degenerative change and hyperkyphosis are noted in the thoracic spine. No lytic or blastic bony lesions are seen. Soft tissues: The patient is cachectic. IMPRESSION: 1. No acute abnormality. 2. Advanced emphysema. 3. Trace pleural effusions. No lobar consolidation is identified. 4. There are numerous foci of parenchymal nodularity, unchanged from 06/04/2017 with the exception of a new 1.5 cm focus in the left upper lobe. These are pathologically indeterminant, and although statistically likely on an infectious/inflammatory basis neoplasm is not excluded. Precautionary 3 month follow-up is recommended to document stability/resolution. 5. Additional findings as above. Electronically signed by: Gene Greer M.D. 08/02/2017 5:47 PM The patient was informed of the findings. I discussed the case once again with Dr. meeks who agreed with treatment plan. The patient was discharged home in stable condition. DIAGNOSIS: Right rib contusion TREATMENT and DISCHARGE INSTRUCTION Tylenol as needed for pain. Take Rivesville as needed for more severe pain. Do not drive while taking the [place]. Spirometry as directed. If symptoms should persist or worsen, follow-up with your family doctor for reevaluation. Problem List Medical Problems: (1) Benign hypertension Status: Chronic (2) CKD (chronic kidney disease), stage III Status: Chronic (3) COPD (chronic obstructive pulmonary disease) Status: Chronic (4) Coronary artery disease Status: Chronic (5) Dyslipidemia Status: Chronic (6) Gastroesophageal reflux disease Status: Chronic (7) History of endometrial cancer Status: Chronic (8) History of TATYANA infection Permanent Comment: 2011 dx by bronchoscopic culture Status: Chronic (9) KNEE JOINT REPLACEMENT STATUS Status: Chronic (10) Legal blindness Status: Chronic (11) MACULAR DEGENERATION NOS Status: Chronic (12) MA (myocardial infarction) Status: Resolved (13) Osteoporosis Status: Chronic (14) OSTEOPOROSIS NEC Status: Chronic (15) Pneumonia Status: Resolved (16) Pseudogout Status: Resolved (17) Pseudogout Status: Resolved (18) Pseudogout Status: Chronic (19) Refractory migraine without aura Status: Chronic (20) Symptomatic bradycardia Status: Resolved (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, 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 Surgical Problems: (1) History of cataract surgery Status: Chronic (2) History of hysterectomy Status: Chronic (3) S/P bronchoscopy Status: Chronic (4) Status post right knee replacement Status: Chronic Current/Historical Medications Scheduled Aspirin (Aspirin 81), 81 MG PO QAM Atorvastatin (Lipitor), 10 MG PO HS Calcium Carbonate-Vitamin D (Caltrate 600+D 600-400 mg-Unit), 1 TAB PO BID Cholecalciferol (Vitamin D), 1,000 UNIT PO BID Diazepam (Valium), 5 MG PO BID Docusate Sodium (Colace), 100 MG PO HS Fluticasone Prop/Salmeterol (Advair Diskus 250/50 60 Dose), 1 PUFF INH BID Furosemide (Lasix), 20 MG PO DAILY Hydrocortisone 2.5% (Rectal) (Anusol-Hc 2.5%), 1 APPLN TOP BID Ipratropium Neeses (Atrovent Hfa), 2 PUFFS INH BID Ipratropium-Albuterol (Duoneb), 1 TREATMENT INH BID Isosorbide Mononitrate (Isosorbide Mononitrate ER), 30 MG PO QAM Lutein (Lutein), 80 MG PO QAM Omeprazole (Prilosec), 40 MG PO QAM Polyethylene Glycol 3350 (Miralax), 1 DOSE PO HS Potassium Chloride (Potassium Chloride Er), 10 MEQ PO BID Zinc Acetate (Oral) (Galzin), 75 MG PO UD Scheduled PRN Bisacodyl (Fleet Laxative), 5 MG PO HS PRN for Constipation Hydrocodone/Acetaminophen 5MG/325MG (Rives[place] 5MG/325MG), 1 TABLET PO Q4 PRN for Pain Mometasone Furoate (Nasal) (Mometasone Furoate), 1 SPRAY FRENCH DAILY PRN for Nasal Congestion Nitroglycerin (Nitrostat), 0.4 MG UT UD PRN for Chest Pain Oxycodone HCl (Oxycodone HCl), 5 MG PO Q6H PRN for Headache Allergies Coded Allergies: Penicillins (Verified Allergy, Intermediate, AMOXICILLIN-HIVES, 08/02/17) Polymyxin B (Verified Allergy, Unknown, POLYTRIM, 08/02/17) Trimethoprim (Verified Allergy, Unknown, POLYTRIM, 08/02/17) Vital Signs Date Time Temp Pulse Resp B/P (MAP) Pulse Ox O2 Delivery O2 Flow Rate FiO2 08/02/17 16:56 55 20 127/57 97 Room Air 08/02/17 15:26 36.3 61 18 110/58 95 Room Air Medications Administered Medications (Trade) Dose Ordered Sig/Omkar Route Start Time Stop Time Status Last Admin Dose Admin Acetaminophen/ Hydrocodone Bitart ([place] 5/325 Tab) 1 tab NOW STAT PO 08/02/17 15:41 08/02/17 15:43 DC 08/02/17 15:54 1 TAB Departure Information Prescriptions Hydrocodone/Acetaminophen 5MG/325MG ([place] 5MG/325MG) Tab 1 TABLET PO Q4 Y for Pain, #18 TAB For Initial Treatment Prov: Minoo Jaramillo PA-C 08/02/17 Referrals Elder Nickerson DClarissaOClarissa (PCP) Patient Instructions [facility]
[2017-08-02] MEDS ORDERED: HYDR-5688 PO (16:41)
--- NOTE | 2017-08-02 16:45 | EMERGENCY ROOM VISIT NOTE ---
ED Visit Note First contact with patient: 15:35 HPI: right rib pain after fall from couch. PE: AFVSS, NAD NC/AT RRR, no murmurs CTAB Abd soft NT/ND Ext: no edema, erythema Neuro: grossly intact Plan: Xray negative. Pain control. IS. Still with significant ttp despite norco. Will r/o rib fx with CT chest given age and multiple comorbidities that would add risk of mortality of 10% with each rib fracture if present. CT chest negative for fx. IS >1250. pcp f/u. I reviewed the patient's past medical history, medications, and visit nursing notes. I discussed the case with the physician assistant professor of communication, examined the patient, and agree with the findings and plan as documented in the physician assistants note.
--- NOTE | 2017-08-02 17:49 | DIAGNOSTIC IMAGING REPORT ---
CT SCAN OF THE CHEST WITHOUT IV CONTRAST CLINICAL HISTORY: Fall with right-sided chest pain. COMPARISON STUDY: Chest CT scans dated 06/04/2017 and 07/30/2013. Chest radiograph dated 08/02/2017. TECHNIQUE: CT scan of the thorax was performed from the thoracic inlet to the upper abdomen. Images are reviewed in the axial, sagittal, and coronal planes. IV contrast was not administered for this examination as per the referring clinician. A dose lowering technique was utilized adhering to the principles of ALARA. CT DOSE: 269.54 mGy.cm FINDINGS: Thyroid: Imaged portions of the thyroid gland are normal in size and attenuation. Bilateral low-attenuation thyroid nodules measure up to 1.6 cm. Thoracic aorta: There is atherosclerotic calcification of the thoracic aorta, which is normal in caliber and demonstrates standard 3-vessel arch anatomy. Heart: The heart is normal in size and without pericardial effusion. Coronary arteries are densely calcified. The pulmonary trunk is normal in caliber. Lungs and pleural spaces: Advanced emphysema is again noted. Trace pleural effusions are identified. There is no airspace consolidation or pneumothorax. The trachea and central airways are clear. Numerous foci of parenchymal nodularity are seen throughout both lungs. These are largely unchanged from 06/04/2017. Several of these have been present dating back to 2012. A policy services representative nodule in the right upper lobe seen on image #145 measures 1.2 cm. A lesion in the left lower lobe seen on image #197 measures up to 2.7 cm, and a right lower lobe nodule on image #195 measures up to 1.2 cm. A focus of nodularity in the left upper lobe is new from previous as seen on image #97. This measures up to 1.5 cm. Mediastinum: There is no mediastinal lymphadenopathy. Dahiana: Not well assessed but IV contrast. Axillae: There is no axillary lymphadenopathy. Upper abdomen: The kidneys are atrophic. A 4.5 cm cyst is noted in the right upper pole. Additional smaller cysts are identified. Numerous bilateral complex renal lesions are identified, likely representing hemorrhagic cysts. These were also seen on prior examinations. Small nonobstructing renal calculi are noted. A small hiatal hernia is observed. Skeletal structures: The skeletal structures are osteopenic. No fracture is seen. Advanced arthritic change is noted in the shoulders. Advanced degenerative change and hyperkyphosis are noted in the thoracic spine. No lytic or blastic bony lesions are seen. Soft tissues: The patient is cachectic. IMPRESSION: 1. No acute abnormality. 2. Advanced emphysema. 3. Trace pleural effusions. No lobar consolidation is identified. 4. There are numerous foci of parenchymal nodularity, unchanged from 06/04/2017 with the exception of a new 1.5 cm focus in the left upper lobe. These are pathologically indeterminant, and although statistically likely on an infectious/inflammatory basis neoplasm is not excluded. Precautionary 3 month follow-up is recommended to document stability/resolution. 5. Additional findings as above. Electronically signed by: Gene Greer M.D. 08/02/2017 5:47 PM Dictated Date/Time: 08/02/2017 5:36 PM
[2017-08-02 18:05] VITALS: BP 127/57; PULSE 56; O2SAT 97
== END 2017-08-02 18:05 | disposition home or self-care (01) ==
LOC: C.EDB 15:25 → C.EDD 18:05
DX: S20.211A Contusion of right front wall of thorax, initial encounter (principal); W22.8XXA Striking against or struck by other objects, initial encounter; M81.0 Age-related osteoporosis without current pathological fracture; J43.9 Emphysema, unspecified; I12.9 Hypertensive chronic kidney disease with stage 1 through stage 4 chronic kidney disease, or unspecified chronic kidney disease; N18.3 Chronic kidney disease, stage 3 (moderate); E78.5 Hyperlipidemia, unspecified; I25.10 Atherosclerotic heart disease of native coronary artery without angina pectoris; K21.9 Gastro-esophageal reflux disease without esophagitis; I25.2 Old myocardial infarction; J44.9 Chronic obstructive pulmonary disease, unspecified; I50.42 Chronic combined systolic (congestive) and diastolic (congestive) heart failure; Z90.710 Acquired absence of both cervix and uterus; Z96.651 Presence of right artificial knee joint

== ENCOUNTER → 2017-09-27 | Outpatient (CLI) | payer OTHER ==
[~2017-09-27] MED LIST changes: +ATOR10TA82 PO; -ATOR10TA88 PO; +HYDR-5688 PO; -LEVO1TAB35 PO; -PRED20TA2 PO
--- NOTE | 2017-09-27 11:23 | DIAGNOSTIC IMAGING REPORT ---
(CHEST) THORAX WITHOUT CLINICAL HISTORY: R91.8 Multiple pulmonary nodules COMPARISON STUDY: 08/02/2017 CT DOSE: 169.66 mGycm TECHNIQUE: CT of the thorax was performed from the thoracic inlet to the lung bases. Images are reviewed in the axial, sagittal, and coronal planes. IV contrast was not administered for this examination. A dose lowering technique was utilized adhering to the principles of ALARA. FINDINGS: Thyroid: There is a multinodular thyroid gland. The largest nodule is a 15 mm right lobe nodule. Thoracic aorta: The thoracic aorta is normal in course and caliber, noting standard 3 vessel arch anatomy. Heart: The heart is normal in size. There are coronary artery calcifications present. Lungs and pleural spaces: No significant pleural effusions are visualized. There is severe pulmonary emphysema. There are multiple bilateral pulmonary nodules. These remain essentially stable from the preceding study. The prior study described a new 15 mm left upper lobe lesion. This appears slightly smaller on the current study measuring 10 mm. This likely represents a resolving inflammatory focus. Mediastinum: A 1 cm precarinal lymph node remains unchanged. Dahiana: There is no pathologic hilar adenopathy given the limitations of a noncontrast study Axilla: There is no evidence of pathologic axillary lymphadenopathy Upper abdomen: There is right-sided nephrolithiasis. There is an 11 mm hyperdense left renal lesion likely representing a hyperdense cyst. Bilateral upper pole renal cysts are visualized measuring 45 mm on the right and 30 mm and the left. There is also a probable 8 mm hyperdense upper pole right renal cyst. Skeletal structures: There are no lytic or blastic osseous lesions. IMPRESSION: 1. Severe pulmonary emphysema 2. Multiple bilateral pulmonary nodules remain stable or smaller. Electronically signed by: Walter Boston M.D. 09/27/2017 11:22 AM Dictated Date/Time: 09/27/2017 11:14 AM
== END | disposition home or self-care (01) ==
LOC: C.CTS 10:51
PROVIDERS: ATTEND Internal Medicine Pulmonary Disease
DX: R91.8 Other nonspecific abnormal finding of lung field (principal); J43.9 Emphysema, unspecified

== ENCOUNTER → 2017-11-11 | Outpatient (CLI) | payer OTHER ==
--- NOTE | 2017-11-12 12:51 | MAMMOGRAPHY REPORT ---
BILATERAL DIGITAL SCREENING MAMMOGRAM WITH CAD: 11/11/2017 CLINICAL HISTORY: Routine screening. Patient has no complaints. TECHNIQUE: Current study was also evaluated with a Computer Aided Detection (CAD) system. Bilateral CC and MLO views were obtained. COMPARISON: Comparison is made to exams dated: 11/10/2016 mammogram, 11/06/2015 mammogram, 4 mammogram, 11/02/2013 mammogram, and 10/31/2012 mammogram - [facility]. BREAST COMPOSITION: The tissue of both breasts is heterogeneously dense, which may obscure small mas ses. FINDINGS: No suspicious masses, calcifications, or areas of architectural distortion are noted in ei ther breast. There has been no significant interval change compared to prior exams. IMPRESSION: ACR BI-RADS CATEGORY 1: NEGATIVE There is no mammographic evidence of malignancy. A 1 year screening mammogram is recommended. The pa tient will receive written notification of the results. Approximately 10% of breast cancers are not detected with mammography. A negative mammographic report should not delay biopsy if a clinically suggestive mass is present. Shalonda Wakefield M.D. ah/:11/11/2017 16:00:52 Manager Flight Operations: Chelsy Watts RT(R)(M), [facility] letter sent: Normal 1/2 BI-RADS Code: ACR BI-RADS Category 1: Negative
== END | disposition home or self-care (01) ==
LOC: C.MAMM 15:02
PROVIDERS: ATTEND Family Medicine
DX: Z12.31 Encounter for screening mammogram for malignant neoplasm of breast (principal)